=== PATIENT | male | born 1970 | race Caucasian/White ===

== ENCOUNTER 2024-04-30 09:01 | Inpatient (IN) ==
[2024-04-30] MEDS: ALBUT/IPRATROP 3MG/0.5MG NEB 3 ML VIAL NEB ONE (09:48)
--- NOTE | 2024-04-30 09:55 | XRay Report ---
XR chest 1V portable CLINICAL HISTORY: Dyspnea. COMPARISON STUDY: No previous studies for comparison. FINDINGS: Lung volumes are normal. Lungs are clear. There is no pneumothorax or pleural effusion. Top normal cardiac size. Mediastinal contours are normal. There is no evidence for pulmonary edema. IMPRESSION: No acute cardiopulmonary findings. ACT 112: Negative or not required by law. Electronically signed by: Callum Novoa M.D. 04/30/2024 9:54 AM
[2024-04-30 09:58] LABS: Base Excess VBG 5.8 mEq/L; HCO3 VBG 31 mmol/L; Oxygen Saturation VBG < 60.0 %; PCO2 VBG 47 mmHg (38-50); PO2 VBG 32 mmHg; pH VBG 7.43 (7.36-7.41)
[2024-04-30 10:07] LABS: Basophils # (auto) 0.04 K/uL (0.00-0.20); Basophils % (auto) 0.6 %; Hematocrit (blood only) 45.7 % (42.0-52.0); Hemoglobin 15.5 g/dl (14.0-18.0); Immature Granulocytes # (auto) 0.01 K/uL (0.01-0.20); Immature Granulocytes % (auto) 0.1 %; Lymphocytes # (auto) 0.62 K/uL (1.20-3.40); Lymphocytes % (auto) 8.6 %; Mean Corpuscular Hemoglobin 33.1 pg (25.0-34.0); Mean Corpuscular Hgb Conc 33.9 g/dL (32.0-36.0); Mean Corpuscular Volume 97.6 fL (80.0-100.0); Mean Platelet Volume 9.2 fL (9.4-12.4); Monocytes # (auto) 0.92 K/uL (0.11-0.59); Monocytes % (auto) 12.8 %; Neutrophils # (auto) 5.59 K/uL (1.40-6.50); Neutrophils % (auto) 77.9 %; Platelet Count 121 K/uL (130-400); RDW Coefficient of Variation 13.3 % (11.5-14.5); RDW Standard Deviation 48.1 fL (36.4-46.3); Red Blood Count 4.68 M/uL (4.70-6.10); White Blood Count 7.18 K/ul (4.8-10.8)
--- NOTE | 2024-04-30 10:14 | Emergency Department Note ---
Impression & Plan Acute dyspnea, Acute hypoxemic respiratory failure, Hypomagnesemia, New onset a-fib, Elevated brain natriuretic peptide (BNP) level, Transaminitis, Influenza A (H1N1) ED Provider Note HISTORY OF PRESENT ILLNESS: Patient is a 53-year-old male presenting with shortness of breath. Patient reports that acutely at 2 AM this morning he woke up and felt like he could not breathe. He describes a diffuse chest tightness. He states he has had a cough and nasal congestion starting yesterday. Denies any fevers. He does smoke. Denies any recent sick contact exposures. Denies any history of cardiac stents. Denies any DVT or PE history. He is not on any anticoagulation. He states that he went to work and had increasing shortness of breath and chest tightness, prompting him to present to the emergency department. ROS: as above PHYSICAL EXAM: Constitutional: Patient appears in mild distress. HENT: Head: Normocephalic and atraumatic. Eyes: EOMI, PERRL Mouth/Throat: Mucous membranes moist. Neck: Trachea midline. Neck supple. Cardiovascular: Tachycardic with irregularly irregular rhythm. No murmurs, rubs or gallops. Intact distal pulses. Pulmonary/Chest: Conversationally dyspneic. Diffuse expiratory wheezes bilaterally. Abdominal: Abdomen soft, no tenderness, rebound or guarding. Musculoskeletal: No edema, tenderness or deformity noted. Skin: Warm and dry. No rash, erythema, pallor or cyanosis Psychiatric: Appropriate mood and affect for situation. Neurological: Alert and keenly responsive. CN II-XII grossly intact, moving all extremities equally and fully. MDM: - Vitals signs showed hypertension, tachycardia and hypoxia. Patient placed on 3 L nasal cannula. - History obtained via patient. History as above. - Chronic conditions affecting care: None - Differential diagnoses include, but are not limited to: Congestive heart failure; acute coronary syndrome; COPD/asthma exacerbation; pulmonary edema; pulmonary embolism; pneumonia; pneumothorax; viral syndrome - Order placed for continuous cardiac monitoring. At this time, monitor showed rate of 110 bpm with irregular rhythm, per my interpretation. - External medical records reviewed. - EKG interpreted by myself showed atrial fibrillation. Rate tachycardic at 110 bpm. QT 324. No acute ischemic changes. No previous EKG to compare to. Patient does not report any history of A-fib. - Laboratory workup interpreted by myself showed normal WBC; normal PT/INR; hypomagnesemia (Mg 1.5); transaminitis (AST 47; ALT 55); normal troponin; elevated BNP (593) - CXR negative for pneumonia, per my interpretation - VBG grossly unremarkable - UA negative for infection - CT PE negative for pulmonary embolism. Noted to have some small clustered tree-in-bud nodules in the right lower lobe suggestive of an infectious etiology like bronchitis. Also noted to have mildly enlarged mediastinal and bilateral hilar lymph nodes. Noted to have possible pericholecystic stranding, which could be acute cholecystitis in the setting of right upper quadrant pain. - Patient does not have any RUQ abdominal pain on examination - Viral respiratory panel positive for influenza A. - Given an hour long duoneb for wheezing. Given 1g IV magnesium for electrolyte replacement and 1 L normal saline. - Given patient's new oxygen requirement, new A-fib and abnormal laboratory workup, he will be admitted to the hospital service for further evaluation and management. - Discussion was had with rehabilitation caseworker about patient's case and need for admission - Hospitalist consulted for admission - Patient admitted to [facility] service for further evaluation and management. I have personally spent 34 minutes of critical care time in the direct management of this patient. This includes bedside care, interpretation of diagnostic studies, and testing, discussion with consultants, patient, and family members, and other required patient management activities. This 34 minutes is in excess of all separately billable procedures. ASSESSMENT AND PLAN: Diagnosis: acute dyspnea; acute hypoxemic respiratory failure; transaminitis; hypomagnesemia; elevated BNP; new onset Afib; influenza A (H1N1) Plan: admit Past Med/Surg History Problem List (Updated 04/30/24 @ 11:52 by Nikki Michel MD) Influenza A (H1N1) (Acute) Transaminitis (Acute) Elevated brain natriuretic peptide (BNP) level (Acute) New onset a-fib (Acute) Hypomagnesemia (Acute) Acute hypoxemic respiratory failure (Acute) Acute dyspnea (Acute) Finger avulsion (Acute) Social History Smoking Status: Current every day smoker Tobacco Type: Cigarettes Feels Safe at Home: Yes Allergies Allergies Allergy/AdvReac Type Severity Reaction Status Date / Time No Known Drug Allergies Allergy Unknown . Verified 03/12/10 07:34 Home Meds Home Medications Medication Instructions Recorded Confirmed No Known Home Medications 04/30/24 04/30/24 Results & Data (ED) Vital Signs Vital Signs - 24 hr 04/30/24 09:12 04/30/24 09:35 04/30/24 09:50 Temperature 37.1 C Temperature Source Oral Pulse Rate 126 H 108 H Pulse Rate [Right Finger] Pulse Rate from SpO2 Sensor Respiratory Rate 44 H 22 Respiratory Effort / Characteristics Spontaneous Short of Breath Respiratory Depth Respiratory Pattern Blood Pressure 160/86 H Blood Pressure [Right Arm] Blood Pressure Mean 110 Blood Pressure Mean [Right Arm] Pulse Oximetry 88 L 92 Oxygen Delivery Method Room Air Nasal Cannula Oxygen Flow Rate 3 Sepsis Recent Fever Within 48 Hours No Sepsis New/Unexplained Change in Mental Status N/A Sepsis Action Taken by Nursing No Action Required 04/30/24 10:58 04/30/24 11:00 04/30/24 11:24 Temperature Temperature Source Pulse Rate 116 H 135 H Pulse Rate [Right Finger] Pulse Rate from SpO2 Sensor 120 H 138 H Respiratory Rate 29 H 22 Respiratory Effort / Characteristics Respiratory Depth Shallow Respiratory Pattern Blood Pressure 143/99 H Blood Pressure [Right Arm] Blood Pressure Mean 115 Blood Pressure Mean [Right Arm] Pulse Oximetry 100 96 Oxygen Delivery Method Nasal Cannula Oxygen Flow Rate 2 Sepsis Recent Fever Within 48 Hours Sepsis New/Unexplained Change in Mental Status Sepsis Action Taken by Nursing 04/30/24 11:25 04/30/24 11:26 04/30/24 11:27 Temperature Temperature Source Pulse Rate Pulse Rate [Right Finger] 118 H Pulse Rate from SpO2 Sensor Respiratory Rate 20 Respiratory Effort / Characteristics Non-Labored Spontaneous Respiratory Depth Normal Respiratory Pattern Regular Blood Pressure 134/95 Blood Pressure [Right Arm] 134/95 Blood Pressure Mean 105 Blood Pressure Mean [Right Arm] 108 Pulse Oximetry 96 Oxygen Delivery Method Nasal Cannula Nasal Cannula Oxygen Flow Rate 2 2 Sepsis Recent Fever Within 48 Hours Sepsis New/Unexplained Change in Mental Status Sepsis Action Taken by Nursing 04/30/24 11:30 04/30/24 11:45 Temperature Temperature Source Pulse Rate 131 H 111 H Pulse Rate [Right Finger] Pulse Rate from SpO2 Sensor 138 H 112 H Respiratory Rate 22 30 H Respiratory Effort / Characteristics Respiratory Depth Respiratory Pattern Blood Pressure 135/104 H 125/94 Blood Pressure [Right Arm] Blood Pressure Mean 114 104 Blood Pressure Mean [Right Arm] Pulse Oximetry 96 95 Oxygen Delivery Method Nasal Cannula Nasal Cannula Oxygen Flow Rate 2 2 Sepsis Recent Fever Within 48 Hours Sepsis New/Unexplained Change in Mental Status Sepsis Action Taken by Nursing Laboratory Data 04/30/24 09:51 04/30/24 09:51 Lab Results 04/30/24 04/30/24 04/30/24 Range/Units 09:47 09:51 11:00 WBC 7.18 (4.8-10.8) K/ul RBC 4.68 L (4.70-6.10) M/uL Hgb 15.5 (14.0-18.0) g/dl Hct 45.7 (42.0-52.0) % MCV 97.6 (80.0-100.0) fL MCH 33.1 (25.0-34.0) pg MCHC 33.9 (32.0-36.0) g/dL RDW Std Deviation 48.1 H (36.4-46.3) fL RDW Coeff of Cong 13.3 (11.5-14.5) % Plt Count 121 L (130-400) K/uL MPV 9.2 L (9.4-12.4) fL Immature Gran % (Auto) 0.1 % Neut % (Auto) 77.9 % Lymph % (Auto) 8.6 % [place] % (Auto) 12.8 % Eos % (Auto) 0.0 % Baso % (Auto) 0.6 % Neut # (Auto) 5.59 (1.40-6.50) K/uL Lymph # (Auto) 0.62 L (1.20-3.40) K/uL [place] # (Auto) 0.92 H (0.11-0.59) K/uL Eos # (Auto) 0.00 (0.00-0.50) K/uL Baso # (Auto) 0.04 (0.00-0.20) K/uL Immature Gran # (Auto) 0.01 (0.01-0.20) K/uL PT 11.4 (9.0-12.0) Seconds INR 1.1 (0.9-1.1) VBG pH 7.43 H (7.36-7.41) VBG pCO2 47 (38-50) mmHg VBG pO2 32 mmHg VBG HCO3 31 mmol/L VBG O2 Saturation < 60.0 % VBG Base Excess 5.8 mEq/L Sodium 134 L (136-145) mmol/L Potassium 4.5 (3.5-5.1) mmol/L Chloride 97 L (98-107) mmol/L Carbon Dioxide 31 (21-32) mmol/L Anion Gap 6 (3-11) BUN 10 (6-23) mg/dl Creatinine 0.87 (0.6-1.4) mg/dl Est Cr Clr Drug Dosing 123.0 ml/min eGFR 103.82 BUN/Creatinine Ratio 11.5 (10-20) Glucose 136 H (70-99(Fasting)) mg/dl Calcium 9.4 (8.6-10.3) mg/dl Magnesium 1.5 L (1.7-2.4) mg/dl Total Bilirubin 0.9 (0.2-1.0) mg/dl AST 47 H (13-39) U/L ALT 55 H (7-52) U/L Alkaline Phosphatase 64 (34-104) U/L Troponin I High Sens 17.5 (0-20) pg/ml B-Natriuretic Peptide 593 H (0-100) pg/ml Total Protein 7.0 (6.0-8.3) gm/dl Albumin 4.4 (3.4-5.0) gm/dl Globulin 2.6 (2.5-4.0) gm/dl Albumin/Globulin Ratio 1.7 (0.9-2) Urine Color Yellow Urine Appearance Clear (Clear) Urine pH 6.0 (4.5-7.5) Ur Specific [place] 1.013 (1.000-1.030) Urine Protein Trace H (Negative) Urine Glucose (UA) Negative (Negative) Urine Ketones Negative (Negative) Urine Blood Trace H (Negative) Urine Nitrite Negative (Negative) Urine Bilirubin Negative (Negative) Urine Urobilinogen Negative (Negative) Ur Leukocyte Esterase Negative (Negative) Urine WBC (Auto) 0-5 (0-5) /hpf Urine RBC (Auto) 0-2 (0-2) /hpf U Hyaline Cast (Auto) 0-2 (0-2) /lpf U Epithel Cells (Auto) 0-2 (0-2) /hpf Urine Bacteria (Auto) None Seen (None Seen) Nasal Influ A H1 2009 PCR (NotDetected) Adenovirus (PCR) (NotDetected) B. pertussis DNA (PCR) (NotDetected) B.parapertussis DNA PCR (NotDetected) C. pneumoniae DNA (PCR) (NotDetected) Coronavirus OC43 (PCR) (NotDetected) Coronavirus HKU1 (PCR) (NotDetected) Coronavirus 229E (PCR) (NotDetected) SARS-CoV-2 (PCR) (NotDetected) Coronavirus NL63 (PCR) (NotDetected) Human Metapneumovir PCR (NotDetected) Influenza Type B (PCR) (NotDetected) M. pneumoniae (PCR) (NotDetected) Parainfluenza 1 (PCR) (NotDetected) Parainfluenza 2 (PCR) (NotDetected) Parainfluenza 3 (PCR) (NotDetected) Parainfluenza 4 (PCR) (NotDetected) RSV (PCR) (NotDetected) Entero/Rhino (PCR) (NotDetected) 04/30/24 Range/Units Unknown WBC (4.8-10.8) K/ul RBC (4.70-6.10) M/uL Hgb (14.0-18.0) g/dl Hct (42.0-52.0) % MCV (80.0-100.0) fL MCH (25.0-34.0) pg MCHC (32.0-36.0) g/dL RDW Std Deviation (36.4-46.3) fL RDW Coeff of Cong (11.5-14.5) % Plt Count (130-400) K/uL MPV (9.4-12.4) fL Immature Gran % (Auto) % Neut % (Auto) % Lymph % (Auto) % [place] % (Auto) % Eos % (Auto) % Baso % (Auto) % Neut # (Auto) (1.40-6.50) K/uL Lymph # (Auto) (1.20-3.40) K/uL [place] # (Auto) (0.11-0.59) K/uL Eos # (Auto) (0.00-0.50) K/uL Baso # (Auto) (0.00-0.20) K/uL Immature Gran # (Auto) (0.01-0.20) K/uL PT (9.0-12.0) Seconds INR (0.9-1.1) VBG pH (7.36-7.41) VBG pCO2 (38-50) mmHg VBG pO2 mmHg VBG HCO3 mmol/L VBG O2 Saturation % VBG Base Excess mEq/L Sodium (136-145) mmol/L Potassium (3.5-5.1) mmol/L Chloride (98-107) mmol/L Carbon Dioxide (21-32) mmol/L Anion Gap (3-11) BUN (6-23) mg/dl Creatinine (0.6-1.4) mg/dl Est Cr Clr Drug Dosing ml/min eGFR BUN/Creatinine Ratio (10-20) Glucose (70-99(Fasting)) mg/dl Calcium (8.6-10.3) mg/dl Magnesium (1.7-2.4) mg/dl Total Bilirubin (0.2-1.0) mg/dl AST (13-39) U/L ALT (7-52) U/L Alkaline Phosphatase (34-104) U/L Troponin I High Sens (0-20) pg/ml B-Natriuretic Peptide (0-100) pg/ml Total Protein (6.0-8.3) gm/dl Albumin (3.4-5.0) gm/dl Globulin (2.5-4.0) gm/dl Albumin/Globulin Ratio (0.9-2) Urine Color Urine Appearance (Clear) Urine pH (4.5-7.5) Ur Specific [place] (1.000-1.030) Urine Protein (Negative) Urine Glucose (UA) (Negative) Urine Ketones (Negative) Urine Blood (Negative) Urine Nitrite (Negative) Urine Bilirubin (Negative) Urine Urobilinogen (Negative) Ur Leukocyte Esterase (Negative) Urine WBC (Auto) (0-5) /hpf Urine RBC (Auto) (0-2) /hpf U Hyaline Cast (Auto) (0-2) /lpf U Epithel Cells (Auto) (0-2) /hpf Urine Bacteria (Auto) (None Seen) Nasal Influ A H1 2008 PCR DETECTED A (NotDetected) Adenovirus (PCR) Not Detected (NotDetected) B. pertussis DNA (PCR) Not Detected (NotDetected) B.parapertussis DNA PCR Not Detected (NotDetected) C. pneumoniae DNA (PCR) Not Detected (NotDetected) Coronavirus OC43 (PCR) Not Detected (NotDetected) Coronavirus HKU1 (PCR) Not Detected (NotDetected) Coronavirus 229E (PCR) Not Detected (NotDetected) SARS-CoV-2 (PCR) Not Detected (NotDetected) Coronavirus NL63 (PCR) Not Detected (NotDetected) Human Metapneumovir PCR Not Detected (NotDetected) Influenza Type B (PCR) Not Detected (NotDetected) M. pneumoniae (PCR) Not Detected (NotDetected) Parainfluenza 1 (PCR) Not Detected (NotDetected) Parainfluenza 2 (PCR) Not Detected (NotDetected) Parainfluenza 3 (PCR) Not Detected (NotDetected) Parainfluenza 4 (PCR) Not Detected (NotDetected) RSV (PCR) Not Detected (NotDetected) Entero/Rhino (PCR) Not Detected (NotDetected) Administered Medications Magnesium Sulfate/Dextrose (Magnesium Sulfate / D5w) 1 gm in 100 mls @ 100 mls/hr IV NOW STA Stop: 04/30/24 12:38 Last Admin: 04/30/24 12:02 Dose: 100 mls/hr Documented By: Discontinued Medications Albuterol (Albut/Ipratrop 3mg/0.5mg Neb 3 Ml Vial) 12 ml NEB ONE ONE; Protocol Stop: 04/30/24 09:31 Last Admin: 04/30/24 09:48 Dose: 12 ml Documented By: [id number] Ioversol (Optiray 320 125ml) 120 ml IV ONCE ONE Stop: 04/30/24 11:21 Last Admin: 04/30/24 11:20 Dose: 120 ml Documented By: SHARA Imaging Data Radiologist's Impression: Chest X-Ray 04/30/24 09:17 XR chest 1V portable CLINICAL HISTORY: Dyspnea. COMPARISON STUDY: No previous studies for comparison. FINDINGS: Lung volumes are normal. Lungs are clear. There is no pneumothorax or pleural effusion. Top normal cardiac size. Mediastinal contours are normal. There is no evidence for pulmonary edema. IMPRESSION: No acute cardiopulmonary findings. ACT 112: Negative or not required by law. Electronically signed by: Callum Novoa M.D. 04/30/2024 9:54 AM Chest CTA 04/30/24 10:45 CT ANGIOGRAPHY OF THE CHEST, PULMONARY EMBOLUS PROTOCOL CLINICAL HISTORY: Hypoxia. Evaluate for pulmonary embolus. COMPARISON STUDY: Chest radiograph performed earlier today. TECHNIQUE: Following IV administration of 120 mL of Optiray, helical axial images of the chest were obtained utilizing the pulmonary embolus protocol. Maximal intensity projections and sagittal and coronal reformats were viewed on an independent 3D workstation. IV contrast was administered without complication. Automated exposure control was utilized for the study. A dose lowering technique was utilized adhering to the principles of ALARA. CT DOSE: 1033.94 mGy.cm FINDINGS: No pulmonary emboli are identified although segmental and subsegmental pulmonary arteries are suboptimally assessed due to respiratory motion. The heart is mildly enlarged. There is no pericardial effusion. There is no pneumothorax or pleural effusion. A small focus of tree-in-bud nodules within the right lower lobe is present. Lungs are suboptimally assessed due to respiratory motion. There are mildly enlarged mediastinal and hilar lymph nodes. Index right paratracheal lymph node on image 213 of 265 measures 1.6 x 1.2 cm. There is bilateral gynecomastia. Hepatic steatosis is incidentally noted. There is glandular atrophy is visualized portions of the pancreas. There may be subtle pericholecystic stranding. IMPRESSION: 1. No pulmonary emboli identified although segmental and subsegmental pulmonary arteries suboptimally assessed due to respiratory motion. 2. Small cluster of tree-in-bud nodules within the right lower lobe suggestive of an infectious etiology such as bronchiolitis. A chest CT in 3 months to ensure resolution is recommended. 3. Mildly enlarged mediastinal and bilateral hilar lymph nodes. These are probably reactive but should be assessed on follow-up CT to ensure resolution. 4. Possible pericholecystic stranding. This may be artifactual. The findings are not strongly suggestive of acute cholecystitis given lack of gallbladder distention. However, if right upper quadrant pain, ultrasound is recommended. 5. Hepatic steatosis. ACT 112: Negative or not required by law. Electronically signed by: Callum Novoa M.D. 04/30/2024 11:42 AM Discharge Plan Visit Data Chief Complaint: Shortness of Breath/Dyspnea Stated Complaint: TROUBLE BREATHING ED Provider: Nikki Michel Discharge Problem: Acute dyspnea, Acute hypoxemic respiratory failure, Hypomagnesemia, New onset a-fib, Elevated brain natriuretic peptide (BNP) level, Transaminitis, Influenza A (H1N1) Forms Stand Alone Forms: My [facility] Prescriptions Prescriptions: No Action No Known Home Medications Referrals Referrals: PCP,NO [Primary Care Provider] -
[2024-04-30 10:24] LABS: Albumin Globulin Ratio 1.7 (0.9-2); Albumin Level 4.4 gm/dl (3.4-5.0); BUN Creatinine Ratio 11.5 (10-20); Bilirubin,Total 0.9 mg/dl (0.2-1.0); Calcium 9.4 mg/dl (8.6-10.3); Globulin 2.6 gm/dl (2.5-4.0); Magnesium 1.5 mg/dl (1.7-2.4); Potassium 4.5 mmol/L (3.5-5.1)
[2024-04-30 10:28] LABS: INR 1.1 (0.9-1.1); Prothrombin Time 11.4 Seconds (9.0-12.0); Troponin I High Sensitivity 17.5 pg/ml (0-20)
[2024-04-30] MEDS: OPTIRAY 320 125ml IV ONE (11:20)
[2024-04-30 11:25] LABS: Appearance Urine Clear (Clear); Bacteria Urine Automated None Seen (None Seen); Bilirubin Urine Negative (Negative); Blood Urine Trace (Negative); Cast Urine Automated 0-2 /lpf (0-2); Color Urine Yellow; Epithelial Cell Urine Auto 0-2 /hpf (0-2); Glucose Urine UA Negative (Negative); Ketones Urine Negative (Negative); Leukocyte Esterase Urine Negative (Negative); Nitrite Urine Negative (Negative); Protein Urine Trace (Negative); RBC Urine Automated 0-2 /hpf (0-2); Specific Gravity Urine 1.013 (1.000-1.030); Urobilinogen Urine Negative (Negative); WBC Urine Automated 0-5 /hpf (0-5)
[2024-04-30 11:41] LABS: Adenovirus PCR Not Detected (NotDetected); Bordetella parapertussis PCR Not Detected (NotDetected); Bordetella pertussis PCR Not Detected (NotDetected); Chlamydia pneumoniae PCR Not Detected (NotDetected); Coronavirus 229E PCR Not Detected (NotDetected); Coronavirus CoV-2 (COVID19)PCR Not Detected (NotDetected); Coronavirus HKU1 PCR Not Detected (NotDetected); Coronavirus NL63 PCR Not Detected (NotDetected); Coronavirus OC43PCR Not Detected (NotDetected); Human Metapneumovirus PCR Not Detected (NotDetected); Influenza A (H1 2009) PCR DETECTED (NotDetected); Influenza B PCR Not Detected (NotDetected); Mycoplasma pneumoniae PCR Not Detected (NotDetected); Parainfluenza Virus 1 PCR Not Detected (NotDetected); Parainfluenza Virus 2 PCR Not Detected (NotDetected); Parainfluenza Virus 3 PCR Not Detected (NotDetected); Parainfluenza Virus 4 PCR Not Detected (NotDetected); Respiratory Syncytial VirusPCR Not Detected (NotDetected); Rhinovirus/Enterovirus PCR Not Detected (NotDetected)
--- NOTE | 2024-04-30 11:45 | CT Scan Report ---
CT ANGIOGRAPHY OF THE CHEST, PULMONARY EMBOLUS PROTOCOL CLINICAL HISTORY: Hypoxia. Evaluate for pulmonary embolus. COMPARISON STUDY: Chest radiograph performed earlier today. TECHNIQUE: Following IV administration of 120 mL of Optiray, helical axial images of the chest were o btained utilizing the pulmonary embolus protocol. Maximal intensity projections and sagittal and cor onal reformats were viewed on an independent 3D workstation. IV contrast was administered without co mplication. Automated exposure control was utilized for the study. A dose lowering technique was ut ilized adhering to the principles of ALARA. CT DOSE: 1033.94 mGy.cm FINDINGS: No pulmonary emboli are identified although segmental and subsegmental pulmonary arteries are suboptimally assessed due to respiratory motion. The heart is mildly enlarged. There is no perica rdial effusion. There is no pneumothorax or pleural effusion. A small focus of tree-in-bud nodules wi thin the right lower lobe is present. Lungs are suboptimally assessed due to respiratory motion. Ther e are mildly enlarged mediastinal and hilar lymph nodes. Index right paratracheal lymph node on image 213 of 265 measures 1.6 x 1.2 cm. There is bilateral gynecomastia. Hepatic steatosis is incidentally noted. There is glandular atrophy is visualized portions of the pancreas. There may be subtle perich olecystic stranding. IMPRESSION: 1. No pulmonary emboli identified although segmental and subsegmental pulmonary arteries suboptimally assessed due to respiratory motion. 2. Small cluster of tree-in-bud nodules within the right lower lobe suggestive of an infectious etiol ogy such as bronchiolitis. A chest CT in 3 months to ensure resolution is recommended. 3. Mildly enlarged mediastinal and bilateral hilar lymph nodes. These are probably reactive but shoul d be assessed on follow-up CT to ensure resolution. 4. Possible pericholecystic stranding. This may be artifactual. The findings are not strongly suggest juan of acute cholecystitis given lack of gallbladder distention. However, if right upper quadrant jean n, ultrasound is recommended. 5. Hepatic steatosis. ACT 112: Negative or not required by law. Electronically signed by: Callum Novoa M.D. 04/30/2024 11:42 AM
[2024-04-30] MEDS: MAGNESIUM SULFATE / D5W 1 GM/100 ML BAG IV STA ×2 (12:02→16:02)
[2024-04-30] MEDS ORDERED: dilTIAZem HCl 5 MG/ML 5 ML VIAL IV STA (12:11)
--- NOTE | 2024-04-30 12:26 | History & Physical Report ---
Date of Service April 30, 2024 Assessment & Plan (1) Acute hypoxemic respiratory failure: (2) Influenza A (H1N1): Plan: Patient is a 53-year-old male with PMH ETOH abuse, tobacco use, chronic back pain presented to ER with c/o SOB, cough, myalgias x 1 day. In ER afebrile, P: 126, R: 44, BP 160/86, 88% on room air up to 95% on 2 L O2 via nasal cannula +Influenza A on biofire respiratory panel. No leukocytosis. Procalcitonin: 0.07 In ER given 1L NSS, magnesium sulfate 1 g IV, hour-long albuterol neb Isolation precautions Start Tamiflu Xopenex, Atrovent nebs Incentive spirometry, Mucinex Possibly has underlying undiagnosed COPD with tobacco use history Solumedrol 40mg IV Q8H Supplemental oxygen as needed, wean as able CBC in am (3) Atrial fibrillation with RVR: Plan: New onset afib RVR. Likely from underlying illness with influenza In ER given Diltiazem 10 mg IV bolus EKG: afib RVR, Q waves noted in septal and anterior leads. Initial troponin: 17.5. Magnesium: 1.5. BNP: 593 CXR: no acute infiltrate CTA Chest: no PE noted In ER patient reports feeling less SOB and chest tightness is much decreased Heart rates continue in 120s to 150s. Start Cardizem drip Start metoprolol tartrate p.o. Echo Trend troponin TSH pending Start IV heparin Cardiology consult CBC, CMP, magnesium labs in am (4) Hypomagnesemia: Plan: Magnesium: 1.5 In ER given magnesium sulfate 1GM IV Replace and monitor. Goal magnesium level 2.0 or greater (5) Elevated LFTs: Plan: T. bili: 0.9, AST: 47, ALT: 55, alk phos: 64. CTA chest had noted hepatic steatosis, Possible pericholecystic stranding. This may be artifactual. The findings are not strongly suggestive of acute cholecystitis given lack of gallbladder distention. +ETOH use Patient denies RUQ abdominal pain Non-tender abdomen on exam If develops abdominal pain consider further abdominal imaging. Repeat LFTs in AM (6) Abnormal CT of the chest: Plan: CTA Chest: 1. No pulmonary emboli identified although segmental and subsegmental pulmonary arteries suboptimally assessed due to respiratory motion. 2. Small cluster of tree-in-bud nodules within the right lower lobe suggestive of an infectious etiology such as bronchiolitis. A chest CT in 3 months to ensure resolution is recommended. 3. Mildly enlarged mediastinal and bilateral hilar lymph nodes. These are probably reactive but should be assessed on follow-up CT to ensure resolution. 4. Possible pericholecystic stranding. This may be artifactual. The findings are not strongly suggestive of acute cholecystitis given lack of gallbladder distention. However, if right upper quadrant pain, ultrasound is recommended. 5. Hepatic steatosis. Will need follow up chest imaging to reassess (7) H/O ETOH abuse: Plan: Drinks 8 beers daily. Last ETOH drink last night ETOH withdrawal protocol with gabapentin ETOH cessation recommended Start thiamine, folic acid, multivitamin daily Magnesium and phosphorus labs in am (8) Tobacco use: Plan: Smokes 1ppd Nicotine patch Smoking cessation encouraged DVT Prophylaxis On IV heparin Admit PCU Full Code as per discussion with pt, however reports would not want prolonged intubation/mechanical ventilation Does not follows with PCP for routine care Pt was seen and care coordinated with Dr Alonzo. See addendum I spent a total of 80 minutes reviewing notes, outpatient records, labs, medication, coordinating, documenting and providing care for this patient excluding time spent in the performance of separately billed services. History of Present Illness Chief Complaint: SOB Primary Care Provider: NO PCP Patient is a 53-year-old male with PMH ETOH abuse, tobacco use, chronic back pain presented to ER with c/o SOB x 1 day. Patient reports does not go to PCP and denies any known afib, TIA/CVA, CKD, CHF history, HTN, or COPD. Patient states yesterday started with diffuse myalgias, productive cough (unsure of coloration), congestion, and SOB. Unaware if any fever. [place] chilled. States today coughing a lot but attempted going to work today and at work had severe SOB, coughing episode with post tussive emesis and chest tightness and dizziness and felt like he was going to pass out. Denies syncope. Denies NAGY. Denies other vomiting or diarrhea. Denies noted palpitations. States diffuse body aches and diffuse abdominal aching with coughing but denies other abdominal pain. Reports some BLE edema after standing all day at work. Drinks 8 beers a day. Last ETOH last night. reports gets tremulous when doesn't drink. Denies history seizure, DT's. Drinks up to 24 ounces Mountain Dew on work days. Smokes 1ppd. Did not have influenza vaccine this season. Denies any known ill contacts. Denies melena, hematochezia, diarrhea, constipation, vision changes, hemoptysis, paresthesias, extremity weakness, rashes, urinary symptoms. Allergies Allergy/AdvReac Type Severity Reaction Status Date / Time No Known Drug Allergies Allergy Unknown . Verified 03/12/10 07:34 Home Medications Medication Instructions Recorded Confirmed Type No Known Home Medications 04/30/24 04/30/24 History Past Med/Surg History Problem List (Updated 04/30/24 @ 13:17 by Petrona Gandhi PA-C) Abnormal CT of the chest Elevated LFTs Atrial fibrillation with RVR Influenza A (H1N1) (Acute) Transaminitis (Acute) Elevated brain natriuretic peptide (BNP) level (Acute) New onset a-fib (Acute) Hypomagnesemia (Acute) Acute hypoxemic respiratory failure (Acute) Acute dyspnea (Acute) Finger avulsion (Acute) Medical History (Updated 04/30/24 @ 13:17 by Petrona Gandhi PA-C) Tobacco use H/O ETOH abuse Surgical History (Updated 04/30/24 @ 13:42 by Petrona Gandhi PA-C) History of appendectomy Family History (Updated 04/30/24 @ 13:42 by Petrona Gandhi PA-C) Other Prostate cancer Social History (Updated 04/30/24 @ 13:43 by Petrona Gandhi PA-C) Smoking Status: Current every day smoker Tobacco Type: Cigarettes Age Started Using Tobacco: 26; Cigarettes Per Day: 1ppd; Hx Alcohol Use: Yes (8 beers daily) Hx Substance Use: Yes Non-Prescribed Medications Comment: hydrocodone Last Used Substance: Days (ago) Feels Safe at Home: Yes Review of Systems Review of Systems: All systems reviewed & are unremarkable except as noted in HPI & below Physical Exam Physical Exam: General: +ill appearing, no acute respiratory distress at rest on 3L via NC, obese Head: normocephalic, atraumatic Eyes: conjunctiva non-injected, anicteric ENT: normal inspection external ears, nose, mucous membranes moist Neck: supple, trachea midline Lungs: no respiratory distress on 3L O2 via NC with sat 96%, +diminished breath sounds and wheezing throughout CV: irregularly irregular, rate 140, 1+ pretibial edema Abd: protuberant, normal BS, soft, non-tender to palpation Ext: no cyanosis, no calf tenderness Neuro: A&O x 3, no focal deficits noted, normal affect Skin: warm, dry Results & Data Results & Data Vital Signs (Past 12 Hours) Vital Signs Temp Pulse Pulse Resp BP BP Pulse Ox 04/30/24 11:45 111 H 30 H 125/94 95 04/30/24 11:30 131 H 22 135/104 H 96 04/30/24 11:27 04/30/24 11:26 118 H 20 134/95 96 04/30/24 11:25 134/95 04/30/24 11:24 135 H 22 96 04/30/24 11:00 116 H 29 H 143/99 H 100 04/30/24 09:50 22 92 04/30/24 09:35 108 H 04/30/24 09:12 37.1 C 126 H 44 H 160/86 H 88 L O2 Del Method O2 Flow Rate 04/30/24 11:45 Nasal Cannula 2 04/30/24 11:30 Nasal Cannula 2 04/30/24 11:27 Nasal Cannula 2 04/30/24 11:26 Nasal Cannula 2 04/30/24 11:25 04/30/24 11:24 04/30/24 11:00 Nasal Cannula 2 04/30/24 09:50 Nasal Cannula 3 04/30/24 09:35 04/30/24 09:12 Room Air Laboratory Results Short CBC 04/30/24 Range/Units 09:51 WBC 7.18 (4.8-10.8) K/ul Hgb 15.5 (14.0-18.0) g/dl Hct 45.7 (42.0-52.0) % Plt Count 121 L (130-400) K/uL BMP 04/30/24 09:51 Sodium 134 L Potassium 4.5 Chloride 97 L Carbon Dioxide 31 BUN 10 Creatinine 0.87 Glucose 136 H Calcium 9.4 Liver Function 04/30/24 Range/Units 09:51 Total Bilirubin 0.9 (0.2-1.0) mg/dl AST 47 H (13-39) U/L ALT 55 H (7-52) U/L Alkaline Phosphatase 64 (34-104) U/L Albumin 4.4 (3.4-5.0) gm/dl Urine 04/30/24 Range/Units 11:00 Urine Color Yellow Urine Appearance Clear (Clear) Urine pH 6.0 (4.5-7.5) Ur Specific [place] 1.013 (1.000-1.030) Urine Protein Trace H (Negative) Urine Glucose (UA) Negative (Negative) Diagnostic Findings Chest X-Ray 04/30/24 09:17 XR chest 1V portable CLINICAL HISTORY: Dyspnea. COMPARISON STUDY: No previous studies for comparison. FINDINGS: Lung volumes are normal. Lungs are clear. There is no pneumothorax or pleural effusion. Top normal cardiac size. Mediastinal contours are normal. There is no evidence for pulmonary edema. IMPRESSION: No acute cardiopulmonary findings. ACT 112: Negative or not required by law. Electronically signed by: Callum Novoa M.D. 04/30/2024 9:54 AM Chest CTA 04/30/24 10:45 CT ANGIOGRAPHY OF THE CHEST, PULMONARY EMBOLUS PROTOCOL CLINICAL HISTORY: Hypoxia. Evaluate for pulmonary embolus. COMPARISON STUDY: Chest radiograph performed earlier today. TECHNIQUE: Following IV administration of 120 mL of Optiray, helical axial images of the chest were obtained utilizing the pulmonary embolus protocol. Maximal intensity projections and sagittal and coronal reformats were viewed on an independent 3D workstation. IV contrast was administered without complication. Automated exposure control was utilized for the study. A dose lowering technique was utilized adhering to the principles of ALARA. CT DOSE: 1033.94 mGy.cm FINDINGS: No pulmonary emboli are identified although segmental and subsegmental pulmonary arteries are suboptimally assessed due to respiratory motion. The heart is mildly enlarged. There is no pericardial effusion. There is no pneumothorax or pleural effusion. A small focus of tree-in-bud nodules within the right lower lobe is present. Lungs are suboptimally assessed due to respiratory motion. There are mildly enlarged mediastinal and hilar lymph nodes. Index right paratracheal lymph node on image 213 of 265 measures 1.6 x 1.2 cm. There is bilateral gynecomastia. Hepatic steatosis is incidentally noted. There is glandular atrophy is visualized portions of the pancreas. There may be subtle pericholecystic stranding. IMPRESSION: 1. No pulmonary emboli identified although segmental and subsegmental pulmonary arteries suboptimally assessed due to respiratory motion. 2. Small cluster of tree-in-bud nodules within the right lower lobe suggestive of an infectious etiology such as bronchiolitis. A chest CT in 3 months to ensure resolution is recommended. 3. Mildly enlarged mediastinal and bilateral hilar lymph nodes. These are probably reactive but should be assessed on follow-up CT to ensure resolution. 4. Possible pericholecystic stranding. This may be artifactual. The findings are not strongly suggestive of acute cholecystitis given lack of gallbladder distention. However, if right upper quadrant pain, ultrasound is recommended. 5. Hepatic steatosis. ACT 112: Negative or not required by law. Electronically signed by: Callum Novoa M.D. 04/30/2024 11:42 AM ECG Additional Comments: Atrial fibrillation, RVR, rate 110, Q waves septal and anterior leads per my interpretation. no prior EKG available for comparison Supervising Physician Co-Signing Physician Notes Pt seen and examined by me, care coordinated w/ JEse Gandhi PA-C, pls refer to her note above for further detail. 53 yo M w/ hx of ETOH abuse, tobacco use, chronic back pain who presents with shortness of breath, and founds to be positive for Influenza A, hypoxic, and in Afib w/ RVR. Pt is currently laying in bed, in NAD, on suppl. O2, about to have echo done, pt's is present at the bedside. Patient reports diffuse myalgias, productive cough, congestion, and shortness of breath, +chest tightness and dizziness. In ED received, mag, diltiazem. C ontinues to be tachycardic. He is awake, alert, oriented, answers appropriately. + tachycardic,+ diffuse exp. wheezes. abdomen soft, nontender. Moves extremities. Started dilt, will cont. start iv heparin, obtain echo, cardiology consult. For influenza A, start tamiflu, solumedrol, nebs. replete and monitor electrolytes, K, Mg. MD [place]
[2024-04-30] MEDS ORDERED: STAT IV Infusion **Titration per Protocol STA (12:39)
[2024-04-30] MEDS: dilTIAZem HCL 125 MG in DEXTROSE 5% 100 ML IV SCH (13:11)
[2024-04-30] MEDS ORDERED: Heparin IV Adult Wt-Based Low-Dose *NO* INITIAL Bolus Protocol IV STA (13:27)
[2024-04-30] MEDS: LORazepam 0.5 MG TAB PO STA (13:55)
[2024-04-30] MEDS: OSELTAMIVIR PHOSPHATE 75 MG CAP PO STA (13:55)
[2024-04-30] MEDS: guaiFENesin 600 MG TABCR PO ONE (13:55)
[2024-04-30] MEDS: SODIUM CHLORIDE 0.9% 1,000 ML IV ONE (13:56)
[2024-04-30] MEDS: NICOTINE 21 MG/24 HR TDSY TD STA (14:04)
[2024-04-30] MEDS: METOPROLOL TARTRATE 25 MG TAB PO STA (14:04)
[2024-04-30 14:08] LABS: Amphetamines+Metham, Urine Neg (Neg); Barbiturates, Urine Neg (Neg); Benzodiazepine, Urine Neg (Neg); Cocaine, Urine Neg (Neg); Fentanyl, Urine Neg (Neg); MDMA (Ecstacy), Urine Neg (Neg); Marijuana, Urine Neg (Neg); Methadone, Urine Neg (Neg); Opiate, Urine Pos (Neg); Phencyclidine, Urine Neg (Neg)
[2024-04-30] MEDS: HEPARIN 25000 UNIT/500 ML 25,000 UNITS/500 ML BAG IV SCH (14:17)
--- NOTE | 2024-04-30 14:27 | Cardiology Consultation ---
Date of Consultation April 30, 2024 Assessment & Plan (1) Atrial fibrillation with RVR: (2) Influenza A (H1N1): (3) Elevated LFTs: (4) Acute hypoxemic respiratory failure: Plan 53-year-old male presenting with worsening dyspnea and hypoxic respiratory failure. Found to be in atrial fibrillation with rapid ventricular response, test positive for influenza A. Symptoms preceded by several days increasing cough myalgias malaise. Last evening marked dyspnea with cough. Currently improved with oxygen supplementation. Cardiac issues are as follows 1. Atrial fibrillation with rapid ventricular response: Uncertain duration as patient is unaware of tachypalpitations despite elevated heart rate in ER. Anticoagulation with IV heparin ordered. Patient begun on IV diltiazem however preliminary review echo reflects mildly depressed LV systolic function. Will discontinue IV diltiazem continue oral metoprolol tartrate. Formal echo review pending Will ultimately require sleep apnea evaluation 2. Influenza A, likely precipitant of cardiac arrhythmias though patient hypertensive on presentation. Underlying history of significant alcohol use. Treatment per primary service as well as nicotine and alcohol withdrawal management History of Present Illness Reason for Consultation: Atrial fibrillation with rapid ventricular response, shortness of breath Requesting Physician[facility] History of Present Illness Patient is a 53-year-old male without prior cardiac disease, no recent medical interventions presents noting cough malaise and myalgias times several days worsening cough day prior to admission waking patient from sleep earlier this morning. With marked dyspnea. Patient sought ER evaluation where is found to be in atrial fibrillation with rapid ventricular response. Patient unaware of any sense of tachypalpitations. No chest discomfort with cough worsening shortness of breath. No recent fevers but does feel chilled. No history of TIA or stroke, diabetes mellitus, hypertension, renal or hepatic disease. No bleeding issues. Smokes 1 pack of cigarettes per day, Drinks 8 beers per day Moderately active, On feet at work Generally sleeps well but notable loud snorer with restless respiratory status Weight elevated with gradual increase over the past 5 years but no acute change ,no worsening edema or increasing abdominal girth Allergies Allergy/AdvReac Type Severity Reaction Status Date / Time No Known Drug Allergies Allergy Unknown . Verified 03/12/10 07:34 Home Medications Medication Instructions Recorded Confirmed Type No Known Home Medications 04/30/24 04/30/24 History Patient History Medical History Tobacco use H/O ETOH abuse Surgical History History of appendectomy Family History Other Prostate cancer Social History Smoking Status: Current every day smoker Tobacco Type: Cigarettes Age Started Using Tobacco: 26; Cigarettes Per Day: 1ppd; Hx Alcohol Use: Yes (8 beers daily) Hx Substance Use: Yes Non-Prescribed Medications Comment: hydrocodone Last Used Substance: Days (ago) Feels Safe at Home: Yes Review of Systems Review of Systems: All systems reviewed & are unremarkable except as noted in HPI & below Physical Exam Constitutional: + ill appearing and + obese Eyes: PERRL, conjunctivae normal, anicteric sclerae ENMT: external ear and nose normal, oropharynx normal Neck: trachea midline, no thyromegaly + thick neck Respiratory: Auscultation: + bronchovesicular breath sounds Cardiovascular: Rate/Rhythm: + tachycardic and + irregularly irregular Heart Sounds: normal S1 and normal S2; no murmur Gastrointestinal (Abdomen): normal bowel sounds, soft, nontender, no hepatosplenomegaly Skin: no rashes, warm and dry Neurologic: PERRL, EOMI, accommodation nl, no face palsy, no dysarthria Results & Data Vital Signs (Past 12 Hours) Vital Signs Temp Pulse Pulse Resp BP BP Pulse Ox 04/30/24 12:45 144 H 21 169/113 H 96 04/30/24 12:33 120 H 28 H 172/104 H 96 04/30/24 12:15 105 H 24 153/85 H 95 04/30/24 12:00 121 H 30 H 157/91 H 95 04/30/24 11:45 111 H 30 H 125/94 95 04/30/24 11:30 131 H 22 135/104 H 96 04/30/24 11:27 04/30/24 11:26 118 H 20 134/95 96 04/30/24 11:25 134/95 04/30/24 11:24 135 H 22 96 04/30/24 11:00 116 H 29 H 143/99 H 100 04/30/24 09:50 22 92 04/30/24 09:35 108 H 04/30/24 09:12 37.1 C 126 H 44 H 160/86 H 88 L O2 Del Method O2 Flow Rate 04/30/24 12:45 Nasal Cannula 4 04/30/24 12:33 Nasal Cannula 4 04/30/24 12:15 Nasal Cannula 4 04/30/24 12:00 04/30/24 11:45 Nasal Cannula 2 04/30/24 11:30 Nasal Cannula 2 04/30/24 11:27 Nasal Cannula 2 04/30/24 11:26 Nasal Cannula 2 04/30/24 11:25 04/30/24 11:24 04/30/24 11:00 Nasal Cannula 2 04/30/24 09:50 Nasal Cannula 3 04/30/24 09:35 04/30/24 09:12 Room Air Laboratory Results Laboratory Results - last 24 hr 04/30/24 04/30/24 04/30/24 09:47 09:51 09:52 WBC 7.18 RBC 4.68 L Hgb 15.5 Hct 45.7 MCV 97.6 MCH 33.1 MCHC 33.9 RDW Std Deviation 48.1 H RDW Coeff of Cong 13.3 Plt Count 121 L MPV 9.2 L Immature Gran % (Auto) 0.1 Neut % (Auto) 77.9 Lymph % (Auto) 8.6 [place] % (Auto) 12.8 Eos % (Auto) 0.0 Baso % (Auto) 0.6 Neut # (Auto) 5.59 Lymph # (Auto) 0.62 L [place] # (Auto) 0.92 H Eos # (Auto) 0.00 Baso # (Auto) 0.04 Immature Gran # (Auto) 0.01 PT 11.4 INR 1.1 VBG pH 7.43 H VBG pCO2 47 VBG pO2 32 VBG HCO3 31 VBG O2 Saturation < 60.0 VBG Base Excess 5.8 Sodium 134 L Potassium 4.5 Chloride 97 L Carbon Dioxide 31 Anion Gap 6 BUN 10 Creatinine 0.87 Est Cr Clr Drug Dosing 123.0 eGFR 103.82 BUN/Creatinine Ratio 11.5 Glucose 136 H Calcium 9.4 Magnesium 1.5 L Total Bilirubin 0.9 AST 47 H ALT 55 H Alkaline Phosphatase 64 Troponin I High Sens 17.5 B-Natriuretic Peptide 593 H Total Protein 7.0 Albumin 4.4 Globulin 2.6 Albumin/Globulin Ratio 1.7 Procalcitonin 0.07 Urine Color Urine Appearance Urine pH Ur Specific [place] Urine Protein Urine Glucose (UA) Urine Ketones Urine Blood Urine Nitrite Urine Bilirubin Urine Urobilinogen Ur Leukocyte Esterase Urine WBC (Auto) Urine RBC (Auto) U Hyaline Cast (Auto) U Epithel Cells (Auto) Urine Bacteria (Auto) Nasal Influ A H1 2008 PCR Urine Opiates Screen U Codeine Confrm GC/MS Ur Morphine (GC/MS) Ur Hydrocodone (GC/MS) Ur Norhydrocodone Ur Noroxycodone Urine Oxycodone (GC/MS) U Oxymorphone GC/MS Ur Methadone, Qual Ur Hydromorphone (GC/MS) Urine Fentanyl Screen Urine Barbiturates Ur Phencyclidine (PCP) U Amphetamin/Meth Scrn MDMA (Ecstasy) Screen U Benzodiazepines Scrn Ur Cocaine Metabolite U Marijuana (THC) Screen Drug Screen Comment Adenovirus (PCR) B. pertussis DNA (PCR) B.parapertussis DNA PCR C. pneumoniae DNA (PCR) Coronavirus OC43 (PCR) Coronavirus HKU1 (PCR) Coronavirus 229E (PCR) SARS-CoV-2 (PCR) Coronavirus NL63 (PCR) Human Metapneumovir PCR Influenza Type B (PCR) M. pneumoniae (PCR) Parainfluenza 1 (PCR) Parainfluenza 2 (PCR) Parainfluenza 3 (PCR) Parainfluenza 4 (PCR) RSV (PCR) Entero/Rhino (PCR) 04/30/24 04/30/24 11:00 Unknown WBC RBC Hgb Hct MCV MCH MCHC RDW Std Deviation RDW Coeff of Cong Plt Count MPV Immature Gran % (Auto) Neut % (Auto) Lymph % (Auto) [place] % (Auto) Eos % (Auto) Baso % (Auto) Neut # (Auto) Lymph # (Auto) [place] # (Auto) Eos # (Auto) Baso # (Auto) Immature Gran # (Auto) PT INR VBG pH VBG pCO2 VBG pO2 VBG HCO3 VBG O2 Saturation VBG Base Excess Sodium Potassium Chloride Carbon Dioxide Anion Gap BUN Creatinine Est Cr Clr Drug Dosing eGFR BUN/Creatinine Ratio Glucose Calcium Magnesium Total Bilirubin AST ALT Alkaline Phosphatase Troponin I High Sens B-Natriuretic Peptide Total Protein Albumin Globulin Albumin/Globulin Ratio Procalcitonin Urine Color Yellow Urine Appearance Clear Urine pH 6.0 Ur Specific [place] 1.013 Urine Protein Trace H Urine Glucose (UA) Negative Urine Ketones Negative Urine Blood Trace H Urine Nitrite Negative Urine Bilirubin Negative Urine Urobilinogen Negative Ur Leukocyte Esterase Negative Urine WBC (Auto) 0-5 Urine RBC (Auto) 0-2 U Hyaline Cast (Auto) 0-2 U Epithel Cells (Auto) 0-2 Urine Bacteria (Auto) None Seen Nasal Influ A H1 2008 PCR DETECTED A Urine Opiates Screen Pos H U Codeine Confrm GC/MS Pending Ur Morphine (GC/MS) Pending Ur Hydrocodone (GC/MS) Pending Ur Norhydrocodone Pending Ur Noroxycodone Pending Urine Oxycodone (GC/MS) Pending U Oxymorphone GC/MS Pending Ur Methadone, Qual Neg Ur Hydromorphone (GC/MS) Pending Urine Fentanyl Screen Neg Urine Barbiturates Neg Ur Phencyclidine (PCP) Neg U Amphetamin/Meth Scrn Neg MDMA (Ecstasy) Screen Neg U Benzodiazepines Scrn Neg Ur Cocaine Metabolite Neg U Marijuana (THC) Screen Neg Drug Screen Comment Pending Adenovirus (PCR) Not Detected B. pertussis DNA (PCR) Not Detected B.parapertussis DNA PCR Not Detected C. pneumoniae DNA (PCR) Not Detected Coronavirus OC43 (PCR) Not Detected Coronavirus HKU1 (PCR) Not Detected Coronavirus 229E (PCR) Not Detected SARS-CoV-2 (PCR) Not Detected Coronavirus NL63 (PCR) Not Detected Human Metapneumovir PCR Not Detected Influenza Type B (PCR) Not Detected M. pneumoniae (PCR) Not Detected Parainfluenza 1 (PCR) Not Detected Parainfluenza 2 (PCR) Not Detected Parainfluenza 3 (PCR) Not Detected Parainfluenza 4 (PCR) Not Detected RSV (PCR) Not Detected Entero/Rhino (PCR) Not Detected ECG Additional Comments: EKG 04/30/2024 Atrial fibrillation at 110 bpm Poor R progression V1 V2, relatively low voltages
[2024-04-30] MEDS ORDERED: LORazepam 1 MG TAB PO PRN (15:02)
[2024-04-30] MEDS ORDERED: GABAPENTIN 1200MG ALCOHOL WITHDRAWAL LOAD PO STA (15:02)
[2024-04-30] MEDS ORDERED: POLYETHYLENE (MIRALAX) 17 GM PACK PO PRN (15:02)
--- NOTE | 2024-04-30 15:02 | Electrocardiogram Report ---
Test Reason : Blood Pressure : */* mmHG Vent. Rate : 110 BPM Atrial Rate : * BPM P-R Int : * ms QRS Dur : 88 ms QT Int : 324 ms P-R-T Axes : * 70 61 degrees QTcB Int : 438 ms Atrial fibrillation with rapid ventricular response Cannot rule out Anterior infarct , age undetermined Abnormal ECG No previous ECGs available Confirmed by Miguel Edmonds [id number] on 04/30/2024 3:02:12 PM Referred By: REFERRED SELF Confirmed By: Miguel Edmonds
[2024-04-30] MEDS: LEVALBUTEROL 1.25 MG/3 ML NEB NEB SCH (15:15)
[2024-04-30] MEDS: IPRATROPIUM BROMIDE NEB SOLN 0.02% 0.5MG/2.5ML VIAL NEB SCH (15:15)
[2024-04-30] MEDS: methylPREDNISolone 125 MG/2 ML VIAL IV STA (16:02)
[2024-04-30] MEDS: THIAMINE HCL 100 MG in SYRINGE 9 ML IV STA (16:02)
[2024-04-30] MEDS: GABAPENTIN 600 MG TAB PO ONE (16:06)
[2024-04-30] MEDS: METOPROLOL TARTRATE 25 MG TAB PO SCH (16:07)
[2024-04-30 16:12] LABS: Phosphorus 2.6 mg/dl (2.5-4.9)
[2024-04-30 16:19] LABS: Troponin I High Sensitivity 24.3 pg/ml (0-20)
[2024-04-30 16:29] LABS: Thyroid Stimulating Hormone 0.265 uIu/ml (0.300-4.500)
[2024-04-30 17:03] LABS: T4 Free Thyroxine 0.82 ng/dl (0.61-1.60)
[2024-04-30] MEDS: ACETAMINOPHEN 325 MG TAB PO PRN (20:01)
[2024-04-30] MEDS: GABAPENTIN 600 MG TAB PO SCH (20:03)
[2024-04-30] MEDS: methylPREDNISolone 40 MG in SYRINGE 0 ML IV SCH (20:04)
[2024-04-30] MEDS: guaiFENesin 600 MG TABCR PO SCH (20:04)
[2024-04-30] MEDS: OSELTAMIVIR PHOSPHATE 75 MG CAP PO SCH (20:05)
[2024-04-30 20:51] LABS: ANTI-Xa, UFH(UnfractionatedHep 0.28 IU/ml (0.3-0.7)
[2024-04-30] MEDS ORDERED: methylPREDNISolone 125 MG/2 ML VIAL IV SCH (21:00)
[2024-04-30] MEDS ORDERED: METOPROLOL TARTRATE 25 MG TAB PO SCH (21:00)
[2024-04-30] MEDS ORDERED: Ativan IV Alcohol Withdrawal--Active Protocol IV PRN (23:55)
[2024-04-30] MEDS ORDERED: LORazepam 2 MG/1 ML VIAL IV PRN (23:55)
[2024-05-01] MEDS: LORazepam 2 MG/1 ML VIAL IV PRN ×2 (00:40→08:17)
[2024-05-01 04:04] LABS: Hematocrit (blood only) 44.2 % (42.0-52.0); Hemoglobin 15.2 g/dl (14.0-18.0); Mean Corpuscular Hgb Conc 34.4 g/dL (32.0-36.0); Mean Corpuscular Volume 96.1 fL (80.0-100.0); Mean Platelet Volume 9.7 fL (9.4-12.4); Platelet Count 108 K/uL (130-400); RDW Coefficient of Variation 13.3 % (11.5-14.5); RDW Standard Deviation 47.7 fL (36.4-46.3); White Blood Count 9.38 K/ul (4.8-10.8)
[2024-05-01 04:11] LABS: Albumin Globulin Ratio 1.7 (0.9-2); BUN Creatinine Ratio 16.3 (10-20); Bilirubin,Total 0.7 mg/dl (0.2-1.0); Calcium 8.8 mg/dl (8.6-10.3); Creatinine Clr Calc Pharmacy 124.8 ml/min; Globulin 2.4 gm/dl (2.5-4.0); Magnesium 1.8 mg/dl (1.7-2.4); Phosphorus 3.6 mg/dl (2.5-4.9); Potassium 4.1 mmol/L (3.5-5.1); Total Protein 6.4 gm/dl (6.0-8.3)
[2024-05-01 04:13] LABS: ANTI-Xa, UFH(UnfractionatedHep 0.51 IU/ml (0.3-0.7)
[2024-05-01 07:21] LABS: Estimated Average Glucose 131 mg/dl; Hemoglobin A1C 6.2 % (4.5-5.6)
[2024-05-01] MEDS: NICOTINE 21 MG/24 HR TDSY TD SCH (08:04)
[2024-05-01] MEDS: FOLIC ACID 1 MG TAB PO SCH (08:05)
[2024-05-01] MEDS: MULTIVITAMIN TAB PO SCH (08:05)
[2024-05-01] MEDS: THIAMINE HCL 100 MG TAB PO SCH (08:06)
[2024-05-01] MEDS: METOPROLOL SUCC 50MG EXT REL TAB PO SCH (09:34)
--- NOTE | 2024-05-01 09:40 | Hospitalist Progress Note ---
Date of Service May 01, 2024 Assessment & Plan (1) Acute hypoxemic respiratory failure: (2) Abnormal CT of the chest: (3) Influenza A (H1N1): Plan: 53-year-old male with PMH ETOH abuse, tobacco use, chronic back pain presented to ER with c/o SOB, cough, myalgias In ER afebrile, P: 126, R: 44, BP 160/86, 88% on room air up to 95% on 2 L O2 via nasal cannula +Influenza A on biofire respiratory panel. No leukocytosis. Procalcitonin: 0.07 CTA chest noted findings suggestive of bronchiolitis. In ER given 1L NSS, magnesium sulfate 1 g IV, hour-long albuterol neb Had fever overnight Continue tamiflu Continue oxygen supplementation and wean as tolerated Continue solumedrol today. Change to po tomorrow (4) Atrial fibrillation with RVR: Plan: New onset afib RVR. Likely from underlying illness with influenza In ER, he was given Diltiazem 10 mg IV bolus EKG: afib RVR Initial troponin: 17.5. BNP: 593 TTE noted mildly reduced EF of 40-45%, borderline conc LVH, mild to mod global hypokinesis of left ventricle, mod dilated LA, mild MR Diltiazem drip was discontinued with TTE result on day of admission Cardiology eval noted Cardiology increased metoprolol succinate to 100mg BID this AM Continue hep gtt for now. (5) Hypomagnesemia: Plan: Magnesium: 1.5 Got IV repletion Continue to monitor and replete as appropriate (6) Elevated LFTs: (7) H/O ETOH abuse: Plan: On admission, T. bili: 0.9, AST: 47, ALT: 55, alk phos: 64. CTA chest had noted hepatic steatosis, Possible pericholecystic stranding. This may be artifactual. The findings are not strongly suggestive of acute cholecystitis given lack of gallbladder distention. However, patient denied any abd pain and no RUQ tenderness Minimally elevated ALT/AST on admission likely due to alcohol use. Normal today Drinks 8 beers daily. Last ETOH drink was night prior to admission Continue alcohol withdrawal protocol Counseled extensively regarding alcohol cessation Continue thiamine, folic acid Monitor electrolytes (8) Tobacco use: Plan: Smokes 1ppd Nicotine patch Counseled regarding smoking cesssation DVT Prophylaxis On IV heparin gtt as above Full Code Patient will need new PCP set up on discharge as he does not have one I updated about findings and plans I spent a total of 55 minutes coordinating, documenting and providing care for this patient excluding time spent in performance of separately billed services Admission and Anticipated Discharge Date Admission Date: April 30, 2024 Subjective Patient seen and examined Was sleeping but arousable Reports Shortness of breath is improved Reports cough. Denied chest pain, palpitations, dizziness, nausea, vomiting, abd pain Physical Exam Constitutional: + well hydrated and + obese; no acute di stress Eyes: PERRL, conjunctivae normal, anicteric sclerae ENMT: external ear and nose normal, oropharynx normal Respiratory: On nasal cannula, diminished breath sounds, +rhonchi Cardiovascular: Irregularly irregular, tachycardic Gastrointestinal (Abdomen): normal bowel sounds, soft, nontender, no hepatosplenomegaly Neurologic: PERRL, EOMI, accommodation nl, no face palsy, no dysarthria Psychiatric: Was sleepy but arousable, oriented to person, place and month Results & Data Results & Data Vital Signs (Past 12 Hours) Vital Signs Temp Pulse Pulse Resp BP Pulse Ox O2 Del Method 05/01/24 08:08 36.7 C 156 H 22 110/83 93 Nasal Cannula 05/01/24 07:35 201 H 05/01/24 07:23 119 H 22 92 Nasal Cannula 05/01/24 02:39 37.0 C 113 H 19 112/81 94 Nasal Cannula 04/30/24 23:35 36.3 C L 95 H 18 134/84 94 Room Air 04/30/24 22:24 98 H 22 121/92 94 Nasal Cannula 04/30/24 22:23 37.5 C 04/30/24 22:06 99 H O2 Flow Rate 05/01/24 08:08 4 05/01/24 07:35 05/01/24 07:23 4 05/01/24 02:39 4 04/30/24 23:35 04/30/24 22:24 04/30/24 22:23 04/30/24 22:06 Laboratory Results Abnormal lab results 04/30/24 04/30/24 04/30/24 Range/Units 09:47 09:51 11:00 RBC 4.68 L (4.70-6.10) M/uL RDW Std Deviation 48.1 H (36.4-46.3) fL Plt Count 121 L (130-400) K/uL MPV 9.2 L (9.4-12.4) fL Lymph # (Auto) 0.62 L (1.20-3.40) K/uL Gove # (Auto) 0.92 H (0.11-0.59) K/uL Heparin Anti-Xa, Unfract (0.3-0.7) IU/ml VBG pH 7.43 H (7.36-7.41) Sodium 134 L (136-145) mmol/L Chloride 97 L (98-107) mmol/L Glucose 136 H (70-99(Fasting)) mg/dl Hemoglobin A1c (4.5-5.6) % Magnesium 1.5 L (1.7-2.4) mg/dl AST 47 H (13-39) U/L ALT 55 H (7-52) U/L Troponin I High Sens (0-20) pg/ml B-Natriuretic Peptide 593 H (0-100) pg/ml Globulin (2.5-4.0) gm/dl TSH (0.300-4.500) uIu/ml Urine Protein Trace H (Negative) Urine Blood Trace H (Negative) Nasal Influ A H1 2008 PCR (NotDetected) Urine Opiates Screen Pos H (Neg) 04/30/24 04/30/24 04/30/24 Range/Units 15:43 20:18 Unknown RBC (4.70-6.10) M/uL RDW Std Deviation (36.4-46.3) fL Plt Count (130-400) K/uL MPV (9.4-12.4) fL Lymph # (Auto) (1.20-3.40) K/uL Gove # (Auto) (0.11-0.59) K/uL Heparin Anti-Xa, Unfract 0.28 L (0.3-0.7) IU/ml VBG pH (7.36-7.41) Sodium (136-145) mmol/L Chloride (98-107) mmol/L Glucose (70-99(Fasting)) mg/dl Hemoglobin A1c (4.5-5.6) % Magnesium (1.7-2.4) mg/dl AST (13-39) U/L ALT (7-52) U/L Troponin I High Sens 24.3 H 29.3 H (0-20) pg/ml B-Natriuretic Peptide (0-100) pg/ml Globulin (2.5-4.0) gm/dl TSH 0.265 L (0.300-4.500) uIu/ml Urine Protein (Negative) Urine Blood (Negative) Nasal Influ A 2008 PCR DETECTED A (NotDetected) Urine Opiates Screen (Neg) 05/01/24 Range/Units 03:34 RBC 4.60 L (4.70-6.10) M/uL RDW Std Deviation 47.7 H (36.4-46.3) fL Plt Count 108 L (130-400) K/uL MPV (9.4-12.4) fL Lymph # (Auto) (1.20-3.40) K/uL Gove # (Auto) (0.11-0.59) K/uL Heparin Anti-Xa, Unfract (0.3-0.7) IU/ml VBG pH (7.36-7.41) Sodium 134 L (136-145) mmol/L Chloride (98-107) mmol/L Glucose 180 H (70-99(Fasting)) mg/dl Hemoglobin A1c 6.2 H (4.5-5.6) % Magnesium (1.7-2.4) mg/dl AST (13-39) U/L ALT (7-52) U/L Troponin I High Sens (0-20) pg/ml B-Natriuretic Peptide (0-100) pg/ml Globulin 2.4 L (2.5-4.0) gm/dl TSH (0.300-4.500) uIu/ml Urine Protein (Negative) Urine Blood (Negative) Nasal Influ A 2008 PCR (NotDetected) Urine Opiates Screen (Neg)
[2024-05-01 11:08] LABS: ANTI-Xa, UFH(UnfractionatedHep 0.51 IU/ml (0.3-0.7)
--- NOTE | 2024-05-01 12:19 | Cardiology Progress Note ---
Date of Service May 01, 2024 Assessment & Plan (1) Atrial fibrillation with RVR: (2) Influenza A (H1N1): (3) Elevated LFTs: (4) Acute hypoxemic respiratory failure: (5) Cardiomyopathy: Plan 53-year-old male presenting with worsening dyspnea and hypoxic respiratory failure. Found to be in atrial fibrillation with rapid ventricular response, test positive for influenza A. Symptoms preceded by several days increasing cough myalgias malaise. Last evening marked dyspnea with cough. Currently improved with oxygen supplementation. Cardiac issues are as follows 1. Atrial fibrillation with rapid ventricular response: Uncertain duration as patient is unaware of tachypalpitations despite elevated heart rate in ER. Anticoagulation with IV heparin ordered. Patient begun on IV diltiazem however preliminary review echo reflects mildly depressed LV systolic function. Will discontinue IV diltiazem continue oral metoprolol tartrate. Formal echo review pending Will ultimately require sleep apnea evaluation 2. Influenza A, likely precipitant of cardiac arrhythmias though patient hypertensive on presentation. Underlying history of significant alcohol use. Treatment per primary service as well as nicotine and alcohol withdrawal management 05/01/2024 53-year-old admitted with acute hypoxic respiratory failure with influenza A. Newly observed atrial fibrillation found with rapid ventricular response 1. Atrial fibrillation with rapid ventricular response. Metoprolol to tartrate changed to metoprolol succinate 100 mg twice per day. Continue anticoagulation with IV heparin 2. Cardiomyopathy uncertain etiology. Possibilities include atrial fibrilla tion for longer duration, alcohol induced, ischemic. 3. Hypertension with agitation now improving Recommendations: As above continue metoprolol succinate. May titrate higher if necessary we will keep n.p.o. after midnight tonight. Reassess in a.m. for consideration of KALEY guided cardioversion or cardiac catheterization as part of sequential evaluation of patient's current complaints Admission and Anticipated Discharge Date Admission Date: April 30, 2024 Subjective Patient seen and personally examined. Care and management discussed with . Chart and medications, telemetry reviewed Patient remains in atrial fibrillation with elevated ventricular response rate Currently sleeping/sedated due as part of EtOH withdrawal protocol. No noted chest pain or worsening cough. Patient agitated and markedly hypertensive overnight now better Review of Systems Review of Systems: All systems reviewed & are unremarkable except as noted in Subjective Physical Exam Constitutional: + ill appearing and + obese Eyes: PERRL, conjunctivae normal, anicteric sclerae ENMT: external ear and nose normal, oropharynx normal Neck: trachea midline, no thyromegaly + thick neck Respiratory: Auscultation: + bronchovesicular breath sounds Cardiovascular: Rate/Rhythm: + tachycardic and + irregularly irregular Heart Sounds: normal S1 and normal S2; no murmur Gastrointestinal (Abdomen): normal bowel sounds, soft, nontender, no hepatosplenomegaly Skin: no rashes, warm and dry Results & Data Vital Signs (Past 12 Hours) Vital Signs Temp Pulse Pulse Resp BP Pulse Ox O2 Del Method 05/01/24 10:38 36.4 C L 108 H 22 106/80 93 Nasal Cannula 05/01/24 09:50 Nasal Cannula 05/01/24 08:08 36.7 C 156 H 22 110/83 93 Nasal Cannula 05/01/24 07:35 201 H 05/01/24 07:23 119 H 22 92 Nasal Cannula 05/01/24 02:39 37.0 C 113 H 19 112/81 94 Nasal Cannula O2 Flow Rate 05/01/24 10:38 4 05/01/24 09:50 4 05/01/24 08:08 4 05/01/24 07:35 05/01/24 07:23 4 05/01/24 02:39 4 Laboratory Results Laboratory Results - last 24 hr 04/30/24 04/30/24 04/30/24 09:52 11:00 15:43 WBC RBC Hgb Hct MCV MCH MCHC RDW Std Deviation RDW Coeff of Cong Plt Count MPV Heparin Anti-Xa, Unfract Sodium Potassium Chloride Carbon Dioxide Anion Gap BUN Creatinine Est Cr Clr Drug Dosing eGFR BUN/Creatinine Ratio Glucose Estimat Average Glucose Hemoglobin A1c Calcium Phosphorus 2.6 Magnesium Total Bilirubin AST ALT Alkaline Phosphatase Troponin I High Sens 24.3 H Total Protein Albumin Globulin Albumin/Globulin Ratio Procalcitonin 0.07 TSH 0.265 L Free T4 0.82 Urine Opiates Screen Pos H U Codeine Confrm GC/MS Pending Ur Morphine (GC/MS) Pending Ur Hydrocodone (GC/MS) Pending Ur Norhydrocodone Pending Ur Noroxycodone Pending Urine Oxycodone (GC/MS) Pending U Oxymorphone GC/MS Pending Ur Methadone, Qual Neg Ur Hydromorphone (GC/MS) Pending Urine Fentanyl Screen Neg Urine Barbiturates Neg Ur Phencyclidine (PCP) Neg U Amphetamin/Meth Scrn Neg MDMA (Ecstasy) Screen Neg U Benzodiazepines Scrn Neg Ur Cocaine Metabolite Neg U Marijuana (THC) Screen Neg Drug Screen Comment Pending Ethyl Alcohol mg/dL < 10.0 04/30/24 05/01/24 05/01/24 20:18 03:34 10:18 WBC 9.38 RBC 4.60 L Hgb 15.2 Hct 44.2 MCV 96.1 MCH 33.0 MCHC 34.4 RDW Std Deviation 47.7 H RDW Coeff of Cong 13.3 Plt Count 108 L MPV 9.7 Heparin Anti-Xa, Unfract 0.28 L 0.51 0.51 Sodium 134 L Potassium 4.1 Chloride 99 Carbon Dioxide 28 Anion Gap 7 BUN 14 Creatinine 0.86 Est Cr Clr Drug Dosing 124.8 eGFR 104.18 BUN/Creatinine Ratio 16.3 Glucose 180 H Estimat Average Glucose 131 Hemoglobin A1c 6.2 H Calcium 8.8 Phosphorus 3.6 D Magnesium 1.8 Total Bilirubin 0.7 AST 32 ALT 41 Alkaline Phosphatase 49 Troponin I High Sens 29.3 H Total Protein 6.4 Albumin 4.0 Globulin 2.4 L Albumin/Globulin Ratio 1.7 Procalcitonin TSH Free T4 Urine Opiates Screen U Codeine Confrm GC/MS Ur Morphine (GC/MS) Ur Hydrocodone (GC/MS) Ur Norhydrocodone Ur Noroxycodone Urine Oxycodone (GC/MS) U Oxymorphone GC/MS Ur Methadone, Qual Ur Hydromorphone (GC/MS) Urine Fentanyl Screen Urine Barbiturates Ur Phencyclidine (PCP) U Amphetamin/Meth Scrn MDMA (Ecstasy) Screen U Benzodiazepines Scrn Ur Cocaine Metabolite U Marijuana (THC) Screen Drug Screen Comment Ethyl Alcohol mg/dL
--- NOTE | 2024-05-01 14:01 | Electrocardiogram Report ---
Test Reason : Blood Pressure : */* mmHG Vent. Rate : 98 BPM Atrial Rate : * BPM P-R Int : * ms QRS Dur : 88 ms QT Int : 360 ms P-R-T Axes : * 52 67 degrees QTcB Int : 459 ms Atrial fibrillation T wave abnormality, consider anterior ischemia Abnormal ECG When compared with ECG of 30-Apr-2024 09:31, T wave inversion now evident in Anterior leads Confirmed by Miguel Edmonds [id number] on 05/01/2024 2:01:21 PM Referred By: REFERRED SELF Confirmed By: Miguel Edmonds
[2024-05-01] MEDS: GABAPENTIN 600 MG TAB PO SCH (14:08)
[2024-05-02 06:47] LABS: Hematocrit (blood only) 44.7 % (42.0-52.0); Mean Corpuscular Hemoglobin 32.7 pg (25.0-34.0); Mean Corpuscular Hgb Conc 33.6 g/dL (32.0-36.0); Mean Corpuscular Volume 97.4 fL (80.0-100.0); Mean Platelet Volume 9.9 fL (9.4-12.4); Platelet Count 115 K/uL (130-400); RDW Coefficient of Variation 13.5 % (11.5-14.5); Red Blood Count 4.59 M/uL (4.70-6.10); White Blood Count 18.08 K/ul (4.8-10.8)
[2024-05-02 06:59] LABS: Albumin Globulin Ratio 1.3 (0.9-2); Albumin Level 3.5 gm/dl (3.4-5.0); BUN Creatinine Ratio 21.8 (10-20); Bilirubin,Total 0.4 mg/dl (0.2-1.0); Calcium 8.8 mg/dl (8.6-10.3); Creatinine Clr Calc Pharmacy 123.4 ml/min; Globulin 2.6 gm/dl (2.5-4.0); Phosphorus 3.6 mg/dl (2.5-4.9); Potassium 3.9 mmol/L (3.5-5.1); Total Protein 6.1 gm/dl (6.0-8.3)
[2024-05-02 07:24] LABS: ANTI-Xa, UFH(UnfractionatedHep 0.42 IU/ml (0.3-0.7)
--- NOTE | 2024-05-02 10:08 | Hospitalist Progress Note ---
Date of Service May 02, 2024 Assessment & Plan (1) Acute hypoxemic respiratory failure: (2) Influenza A (H1N1): Plan: per Dr. Stephenson's notes with addendum: 53-year-old male with PMH ETOH abuse, tobacco use, chronic back pain presented to ER with c/o SOB, cough, myalgias In ER afebrile, P: 126, R: 44, BP 160/86, 88% on room air up to 95% on 2 L O2 via nasal cannula +Influenza A on biofire respiratory panel. No leukocytosis. Procalcitonin: 0.07 CTA chest noted findings suggestive of bronchiolitis. In ER given 1L NSS, magnesium sulfate 1 g IV, hour-long albuterol neb Had fever overnight Continue tamiflu Continue oxygen supplementation and wean as tolerated Continue solumedrol today. Change to po tomorrow 05/02 still on 3 L clear breath sounds bilaterally continue tamiflu, nebs change solumedrol to prednisone 20mg po daily wean off O2 (3) Atrial fibrillation with RVR: Plan: New onset afib RVR. Likely from underlying illness with influenza In ER, he was given Diltiazem 10 mg IV bolus EKG: afib RVR Initial troponin: 17.5. BNP: 593 TTE noted mildly reduced EF of 40-45%, borderline conc LVH, mild to mod global hypokinesis of left ventricle, mod dilated LA, mild MR Diltiazem drip was discontinued with TTE result on day of admission Cardiology eval noted Cardiology increased metoprolol succinate to 100mg BID this AM Continue hep gtt for now. 05/02 remains on SR, HR 90-100s for possible CV vs cardiac cath today continue Metoprolol PO and Heparin drip (4) Abnormal CT of the chest: Plan: 1. No pulmonary emboli identified although segmental and subsegmental pulmonary arteries suboptimally assessed due to respiratory motion. 2. Small cluster of tree-in-bud nodules within the right lower lobe suggestive of an infectious etiology such as bronchiolitis. A chest CT in 3 months to ensure resolution is recommended. 3. Mildly enlarged mediastinal and bilateral hilar lymph nodes. These are probably reactive but should be assessed on follow-up CT to ensure resolution. 4. Possible pericholecystic stranding. This may be artifactual. The findings are not strongly suggestive of acute cholecystitis given lack of gallbladder distention. However, if right upper quadrant pain, ultrasound is recommended. 5. Hepatic steatosis. will need outpatient repeat CT chest and follow up (5) Hypomagnesemia: Plan: Magnesium: 1.5 Got IV repletion Continue to monitor and replete as appropriate (6) Elevated LFTs: (7) H/O ETOH abuse: Plan: On admission, T. bili: 0.9, AST: 47, ALT: 55, alk phos: 64. CTA chest had noted hepatic steatosis, Possible pericholecystic stranding. This may be artifactual. The findings are not strongly suggestive of acute cholecystitis given lack of gallbladder distention. However, patient denied any abd pain and no RUQ tenderness Minimally elevated ALT/AST on admission likely due to alcohol use. Normal today Drinks 8 beers daily. Last ETOH drink was night prior to admission Continue alcohol withdrawal protocol Counseled extensively regarding alcohol cessation Continue thiamine, folic acid Monitor electrolytes 05/02 no overt signs of alcohol withdrawal continue Gabapentin protocol (8) Tobacco use: Plan: Smokes 1ppd Nicotine patch Counseled regarding smoking cesssation DVT Prophylaxis On IV heparin gtt as above Full Code Patient will need new PCP set up on discharge as he does not have one Admission and Anticipated Discharge Date Admission Date: April 30, 2024 Subjective ff up for respiratory failure, flu positive, new onset a fib, etc seen resting in bed, on 3 L O2, sleeping but easily awakened states he feels fine overall breathing continues to improve, less cough no chest pain, palpitations, dizziness, shortness of breath no tremors, anxiety, confusion no other symptoms Review of Systems Review of Systems: all noted and negative except for above Physical Exam Physical Exam: General- oriented x 3, not in distress, speaks in sentences with no effort or accessory muscle use Eyes- anicteric Neck- no JVD Lungs- clear breath sounds bilaterally, no rales/wheezes Heart- normal rate, regular rhythm; no murmurs Abdomen- normal bowel sounds, nondistended, soft, nontender Extremities- no pretibial edema, no calf tenderness Neuro- alert, oriented x 3; no gross focal neurologic deficits Skin- warm & dry Results & Data Results & Data Vital Signs (Past 12 Hours) Vital Signs Temp Pulse Pulse Resp BP Pulse Ox O2 Del Method 05/02/24 08:00 131 H 05/02/24 07:33 36.6 C 93 H 18 112/84 95 Nasal Cannula 05/02/24 07:09 103 H 19 97 Nasal Cannula 05/02/24 05:30 36.6 C 93 H 18 128/85 95 Nasal Cannula 05/02/24 01:52 102 H 17 96 Nasal Cannula 05/01/24 22:37 36.7 C 119 H 19 115/91 94 Nasal Cannula O2 Flow Rate 05/02/24 08:00 05/02/24 07:33 3 05/02/24 07:09 4 05/02/24 05:30 4 05/02/24 01:52 4 05/01/24 22:37 4 all noted and reviewed including below
--- NOTE | 2024-05-02 10:23 | Cardiology Progress Note ---
Date of Service May 02, 2024 Assessment & Plan (1) Atrial fibrillation with RVR: (2) Influenza A (H1N1): (3) Elevated LFTs: (4) Acute hypoxemic respiratory failure: (5) Cardiomyopathy: Plan 53-year-old male presenting with worsening dyspnea and hypoxic respiratory failure. Found to be in atrial fibrillation with rapid ventricular response, test positive for influenza A. Symptoms preceded by several days increasing cough myalgias malaise. Last evening marked dyspnea with cough. Currently improved with oxygen supplementation. Cardiac issues are as follows 1. Atrial fibrillation with rapid ventricular response: Uncertain duration as patient is unaware of tachypalpitations despite elevated heart rate in ER. Anticoagulation with IV heparin ordered. Patient begun on IV diltiazem however preliminary review echo reflects mildly depressed LV systolic function. Will discontinue IV diltiazem continue oral metoprolol tartrate. Formal echo review pending Will ultimately require sleep apnea evaluation 2. Influenza A, likely precipitant of cardiac arrhythmias though patient hypertensive on presentation. Underlying history of significant alcohol use. Treatment per primary service as well as nicotine and alcohol withdrawal management 05/01/2024 53-year-old admitted with acute hypoxic respiratory failure with influenza A. Newly observed atrial fibrillation found with rapid ventricular response 1. Atrial fibrillation with rapid ventricular response. Metoprolol to tartrate changed to metoprolol succinate 100 mg twice per day. Continue anticoagulation with IV heparin 2. Cardiomyopathy uncertain etiology. Possibilities include atrial fibrilla tion for longer duration, alcohol induced, ischemic. 3. Hypertension with agitation now improving Recommendations: As above continue metoprolol succinate. May titrate higher if necessary we will keep n.p.o. after midnight tonight. Reassess in a.m. for consideration of KALEY guided cardioversion or cardiac catheterization as part of sequential evaluation of patient's current complaints 05/02/2024 Patient clinically improving though still with respiratory issues large amounts of productive sputum, oxygen demands. Remains in atrial fibrillation with intermittently elevated ventricular response rates Plan: Single dose IV furosemide today. Continue current dose of metoprolol succinate Plan KALEY synchronized electrocardioversion for a.m., n.p.o. after midnight tonight. May eat today Admission and Anticipated Discharge Date Admission Date: April 30, 2024 Subjective Patient was seen and examined, chart, telemetry reviewed. Patient much brighter today. Still coughing moderate amounts of thick secretions. Respiratory status however improved. Still requiring 3 L nasal cannula Remains in atrial fibrillation with variable heart rate response No chest pain or worsening shortness of breath. No bleeding issues on anticoagulation with IV heparin. Review of Systems Review of Systems: All systems reviewed & are unremarkable except as noted in Subjective Physical Exam Constitutional: + obese; no acute distress Eyes: PERRL, conjunctivae normal, anicteric sclerae ENMT: external ear and nose normal, oropharynx normal Neck: trachea midline, no thyromegaly + thick neck Respiratory: Auscultation: + bronchovesicular breath sounds Cardiovascular: Rate/Rhythm: + tachycardic and + irregularly irregular Heart Sounds: normal S1 and normal S2; no murmur Gastrointestinal (Abdomen): normal bowel sounds, soft, nontender, no hepatosplenomegaly Musculoskeletal: no cyanosis or clubbing, extremities motor strength 5/5 Skin: no rashes, warm and dry Neurologic: PERRL, EOMI, accommodation nl, no face palsy, no dysarthria Results & Data Vital Signs (Past 12 Hours) Vital Signs Temp Pulse Pulse Resp BP Pulse Ox O2 Del Method 05/02/24 08:00 131 H 05/02/24 07:33 36.6 C 93 H 18 112/84 95 Nasal Cannula 05/02/24 07:09 103 H 19 97 Nasal Cannula 05/02/24 05:30 36.6 C 93 H 18 128/85 95 Nasal Cannula 05/02/24 01:52 102 H 17 96 Nasal Cannula 05/01/24 22:37 36.7 C 119 H 19 115/91 94 Nasal Cannula O2 Flow Rate 05/02/24 08:00 05/02/24 07:33 3 05/02/24 07:09 4 05/02/24 05:30 4 05/02/24 01:52 4 05/01/24 22:37 4 Laboratory Results Laboratory Results - last 24 hr 05/01/24 05/02/24 10:18 06:19 WBC 18.08 H RBC 4.59 L Hgb 15.0 Hct 44.7 MCV 97.4 MCH 32.7 MCHC 33.6 RDW Std Deviation 49.0 H RDW Coeff of Cong 13.5 Plt Count 115 L MPV 9.9 Heparin Anti-Xa, Unfract 0.51 0.42 Sodium 136 Potassium 3.9 Chloride 101 Carbon Dioxide 29 Anion Gap 6 BUN 19 Creatinine 0.87 Est Cr Clr Drug Dosing 123.4 eGFR 103.82 BUN/Creatinine Ratio 21.8 H Glucose 163 H Calcium 8.8 Phosphorus 3.6 Magnesium 2.0 Total Bilirubin 0.4 AST 22 ALT 30 Alkaline Phosphatase 44 Total Protein 6.1 Albumin 3.5 Globulin 2.6 Albumin/Globulin Ratio 1.3
--- NOTE | 2024-05-02 12:12 | Anesthesiology Consultation ---
Date of Service May 02, 2024 Assessment & Plan (1) Encounter for pre-operative examination: Chart Review Chart Review: Acceptable Risk for Surgery History Surgery Operation Date: 05/03/24 07:15 Proposed Procedures p Transesophageal Echo, Cardioversion w/Anesthesia - Homero Rollins MD Height/Weight Height: 5 ft 9 in Weight: 113.6 kg Allergies Allergy/AdvReac Type Severity Reaction Status Date / Time No Known Drug Allergies Allergy Unknown . Verified 03/12/10 07:34 Medications Home Medications Medication Instructions Recorded Confirmed Last Taken No Known Home Medications 04/30/24 04/30/24 Unknown Active Medications Generic Name Dose Route Start Last Admin Trade Name Freq PRN Reason Stop Dose Admin Acetaminophen 650 mg 04/30/24 15:02 05/01/24 21:23 Acetaminophen 325 Mg Tab PO 05/30/24 15:01 650 mg Q4H PRN Administration Pain or Fever Folic Acid 1 mg 05/01/24 09:00 05/02/24 08:20 Folic Acid 1 Mg Tab PO 05/31/24 08:59 1 mg QAM ROSA Administration Guaifenesin 1,200 mg 04/30/24 21:00 05/02/24 08:20 Guaifenesin 600 Mg Tabcr PO 05/30/24 20:59 1,200 mg Q12 ROSA Administration Heparin Sodium/Dextrose 25,000 units in 500 mls @ 22 mls/hr 04/30/24 14:00 05/02/24 07:29 Heparin Sodium/Dextrose IV 05/30/24 13:59 1,100 units/hr .[id number] ROSA 22 mls/hr Titration Protocol 1,100 UNITS/HR Ipratropium [place] 0.5 mg 04/30/24 15:15 05/02/24 07:08 Ipratropium [place] Neb Soln 0.02% 0.5mg/2.5ml Vial NEB 05/30/24 15:14 0.5 mg Q6R ROSA Administration Levalbuterol HCl 1.25 mg 04/30/24 15:15 05/02/24 07:08 Levalbuterol 1.25 Mg/3 Ml Neb NEB 05/30/24 15:14 1.25 mg Q6R ROSA Administration Lorazepam 1 mg 04/30/24 23:55 05/01/24 08:17 Lorazepam 2 Mg/1 Ml Vial IV 05/30/24 23:54 1 mg UD PRN Administration EtOH Withdrawal AWSS Score 6,7 Protocol Lorazepam 2 mg 04/30/24 23:55 05/01/24 21:18 Lorazepam 2 Mg/1 Ml Vial IV 05/30/24 23:54 2 mg UD PRN Administration EtOH Withdrawal AWSS Score 8,9 Protocol Metoprolol Succinate 100 mg 05/01/24 09:00 05/02/24 08:21 Metoprolol Succ 50mg Ext Rel Tab PO 05/31/24 08:59 100 mg BID ROSA Administration Miscellaneous 1 each 05/01/24 08:59 05/02/24 08:19 Remove Nicoderm Patch N/A 05/31/24 08:58 1 each DAILY@0859 ROSA Administration Multivitamins 1 tab 05/01/24 09:00 05/02/24 08:21 Multivitamin Tab PO 05/31/24 08:59 1 tab QAM ROSA Administration Nicotine 1 patch 05/01/24 09:00 05/02/24 08:22 Nicotine 21 Mg/24 Hr Tdsy TD 05/31/24 08:59 1 patch QAM ROSA Administration Oseltamivir Phosphate 75 mg 04/30/24 21:00 05/02/24 08:21 Oseltamivir Phosphate 75 Mg Cap PO 05/05/24 20:59 75 mg BID ROSA Administration Protocol Thiamine HCl 100 mg 05/01/24 09:00 05/02/24 08:21 Thiamine Hcl 100 Mg Tab PO 05/31/24 08:59 100 mg QAM ROSA Administration Past Medical History Medical History (Updated 05/02/24 @ 12:12 by Drake Polanco MD) Cardiomyopathy Atrial fibrillation with RVR Acute hypoxemic respiratory failure Tobacco use H/O ETOH abuse Past Family History Family History Other Prostate cancer Past Surgical History Surgical History History of appendectomy Social History Smoking Status: Current every day smoker Smoking cigarettes per day: 1ppd Do You Dip or Chew Tobacco: No Hx Alcohol Use: Yes Alcohol type: beer alcohol intake frequency: 3 or more drinks per day Hx Substance Use: Yes substance use type: painkillers Substance Use Type Other:: "Pain Pills not perscribed to me" Last Used Substance: Just Prior to Arrival Physical Exam Vital Signs Last Vital Signs Temp 36.3 C L 05/02/24 10:56 Pulse 111 H 05/02/24 10:56 Resp 19 05/02/24 10:56 BP 122/100 05/02/24 10:56 Pulse Ox 94 05/02/24 10:56 O2 Del Method Room Air 05/02/24 10:56 O2 Flow Rate 3 05/02/24 07:33 Testing Laboratory Results 05/02/24 06:19 05/02/24 06:19 PT 11.4 Seconds (9.0-12.0) 04/30/24 09:51 INR 1.1 (0.9-1.1) 04/30/24 09:51 Hemoglobin A1c 6.2 % (4.5-5.6) H 05/01/24 03:34 Urine Color Yellow 04/30/24 11:00 Urine Appearance Clear (Clear) 04/30/24 11:00 Urine pH 6.0 (4.5-7.5) 04/30/24 11:00 Ur Specific [place] 1.013 (1.000-1.030) 04/30/24 11:00 Urine Protein Trace (Negative) H 04/30/24 11:00 Urine Glucose (UA) Negative (Negative) 04/30/24 11:00 Urine Ketones Negative (Negative) 04/30/24 11:00 Urine Nitrite Negative (Negative) 04/30/24 11:00 Ur Leukocyte Esterase Negative (Negative) 04/30/24 11:00 Urine WBC (Auto) 0-5 /hpf (0-5) 04/30/24 11:00 Urine RBC (Auto) 0-2 /hpf (0-2) 04/30/24 11:00 U Hyaline Cast (Auto) 0-2 /lpf (0-2) 04/30/24 11:00 U Epithel Cells (Auto) 0-2 /hpf (0-2) 04/30/24 11:00 Urine Bacteria (Auto) None Seen (None Seen) 04/30/24 11:00 Electrocardiogram Date: 05/01/24 Findings: + NSST changes and + AFIB @ (98) Echocardiogram Date: 04/30/24 EF: 40-45% RWMA: + hypokinetic (mild to moderate global) Valvular Disease: + MR (mild)
[2024-05-02] MEDS: POTASSIUM CHLORIDE CRTAB 20 MEQ TABCR PO ONE (12:15)
[2024-05-02] MEDS: FUROSEMIDE INJ 20 MG/2 ML VIAL IV ONE (12:15)
[2024-05-02] MEDS: GABAPENTIN 600 MG TAB PO SCH (19:55)
[2024-05-03 06:18] LABS: ANTI-Xa, UFH(UnfractionatedHep 0.23 IU/ml (0.3-0.7)
[2024-05-03] MEDS ORDERED: BENZOCAINE/TETRACAIN/BUTAM 50 APPLN/5 GM CAN EXT ONE (07:08)
--- NOTE | 2024-05-03 07:40 | Cardioversion ---
Date of Service May 03, 2024 Electrical Cardioversion Rpt Electrical Cardioversion Report Patietn seen and examined. Procedure and risks of KALEY guided synchronized cardioversion discussed in detail. Informed consent obtained Formal TIMEOUT performed. Patient sedated via anesthesia consult with continuos HR, BP, 02sat, endtidal C02 monitoring. KALEY performed without difficulty No contraindications to cardioversion Synchronized biphasic shock administered with 200J, 360J with succesful conversion to sinus Patient aroused having tolerated well.
[2024-05-03] MEDS ORDERED: LIDOCAINE 2% 2 ML VIAL/AMP(20MG/ML) INFIL ONE (08:00)
[2024-05-03] MEDS ORDERED: PROPOFOL IV EMULSION 10 MG/ML 20 ML VIAL IV ONE (08:00)
--- NOTE | 2024-05-03 08:35 | Anesthesiology Progress Note ---
Date of Service May 03, 2024 Anesthesia Post Procedure Vital Signs Vital Signs: Temp Pulse Pulse Resp BP Pulse Ox Pulse Ox 05/03/24 08:02 86 16 122/91 97 05/03/24 07:48 87 16 102/82 97 05/03/24 07:43 83 18 110/73 94 05/03/24 07:33 93 H 05/03/24 07:16 36.8 C 105 H 16 134/95 100 05/03/24 02:55 36.7 C 90 18 118/94 92 05/03/24 01:43 119/99 05/02/24 22:31 36.8 C 108 H 18 129/107 H 95 05/02/24 22:11 125 H 05/02/24 20:00 05/02/24 19:15 36.7 C 126 H 19 119/85 91 05/02/24 18:26 110 H 16 95 05/02/24 15:35 36.7 C 126 H 16 108/91 93 05/02/24 15:00 92 05/02/24 13:04 110 H 20 95 05/02/24 10:56 36.3 C L 111 H 19 122/100 94 05/02/24 10:34 O2 Del Method O2 Del Method O2 Flow Rate 05/03/24 08:02 Room Air 0 05/03/24 07:48 Oxymask 4 05/03/24 07:43 Oxymask 8 05/03/24 07:33 05/03/24 07:16 Room Air 05/03/24 02:55 Room Air 05/03/24 01:43 05/02/24 22:31 Room Air 05/02/24 22:11 05/02/24 20:00 Room Air 05/02/24 19:15 Room Air 05/02/24 18:26 Room Air 05/02/24 15:35 Room Air 05/02/24 15:00 Room Air 05/02/24 13:04 Room Air 05/02/24 10:56 Room Air 05/02/24 10:34 Room Air Pain Intensity Abdomen: Pain Intensity: 6 Transfer of Care Handoff Completed per policy Notes Mental Status: alert / awake / arousable and participated in evaluation Patient Amnestic to Procedure: Yes Nausea / Vomiting: adequately controlled Pain: adequately controlled Airway Patency, RR, SpO2: stable & adequate BP & HR: stable & adequate Hydration State: stable & adequate Anesthetic Complications: no major complications apparent
[2024-05-03 12:29] LABS: Codeine Urine NEGATIVE ng/mL (<50); Hydrocodone Urine 924 ng/mL (<50); Hydromor Urine 666 ng/mL (<50); Morphine Urine NEGATIVE ng/mL (<50); Norhydrocodone Conf Ur 463 ng/mL (<50); Noroxycodone Urine NEGATIVE ng/mL (<50); Oxycodone Urine NEGATIVE ng/mL (<50); Oxymorph Urine NEGATIVE ng/mL (<50)
[2024-05-03 13:02] LABS: ANTI-Xa, UFH(UnfractionatedHep 0.21 IU/ml (0.3-0.7)
--- NOTE | 2024-05-03 14:03 | Cardiology Progress Note ---
Date of Service May 03, 2024 Assessment & Plan (1) Atrial fibrillation with RVR: (2) Influenza A (H1N1): (3) Elevated LFTs: (4) Cardiomyopathy: Plan 53-year-old male presenting with worsening dyspnea and hypoxic respiratory failure. Found to be in atrial fibrillation with rapid ventricular response, test positive for influenza A. Symptoms preceded by several days increasing cough myalgias malaise. Last evening marked dyspnea with cough. Currently improved with oxygen supplementation. Cardiac issues are as follows 1. Atrial fibrillation with rapid ventricular response: Uncertain duration as patient is unaware of tachypalpitations despite elevated heart rate in ER. Anticoagulation with IV heparin ordered. Patient begun on IV diltiazem however preliminary review echo reflects mildly depressed LV systolic function. Will discontinue IV diltiazem continue oral metoprolol tartrate. Formal echo review pending Will ultimately require sleep apnea evaluation 2. Influenza A, likely precipitant of cardiac arrhythmias though patient hypertensive on presentation. Underlying history of significant alcohol use. Treatment per primary service as well as nicotine and alcohol withdrawal management 05/01/2024 53-year-old admitted with acute hypoxic respiratory failure with influenza A. Newly observed atrial fibrillation found with rapid ventricular response 1. Atrial fibrillation with rapid ventricular response. Metoprolol to tartrate changed to metoprolol succinate 100 mg twice per day. Continue anticoagulation with IV heparin 2. Cardiomyopathy uncertain etiology. Possibilities include atrial fibrillation for longer duration, alcohol induced, ischemic. 3. Hypertension with agitation now improving Recommendations: As above continue metoprolol succinate. May titrate higher if necessary we will keep n.p.o. after midnight tonight. Reassess in a.m. for consideration of KALEY guided cardioversion or cardiac catheterization as part of sequential evaluation of patient's current complaints 05/02/2024 Patient clinically improving though still with respiratory issues large amounts of productive sputum, oxygen demands. Remains in atrial fibrillation with intermittently elevated ventricular response rates Plan: Single dose IV furosemide today. Continue current dose of metoprolol succinate Plan KALEY synchronized electrocardioversion for a.m., n.p.o. after midnight tonight. May eat today 05/03/2024 1. Atrial fibrillation, paroxysmal: Successful conversion to sinus today. Continue current metoprolol succinate. Will require anticoagulation, discharge on Eliquis. Needs formal sleep study and sleep apnea evaluation 2. Diffuse cardiomyopathy with reduced ejection fraction. Will initiate guideline directed therapies with Entresto beginning today continue metoprolol succinate. Consider eplerenone/spironolactone. Discussed options of management occluding medical therapy and diagnostic imaging. Will need ischemic workup post discharge. Discussed cardiac catheterization this admission but wishes medical treatment first. Continue IV heparin until discharge Hopefully some LV recovery after maintaining sinus rhythm. Will need mandated alcohol cessation Admission and Anticipated Discharge Date Admission Date: April 30, 2024 Subjective Patient seen and examined both pre and post synchronized electrical cardioversion at an afternoon rounding. Chart, medications, telemetry reviewed. Successful conversion to sinus rhythm this morning after KALEY clearance. Remains in sinus rhythm this afternoon. Echocardiogram continues to demonstrate diffuse LV dysfunction. No signs or symptoms of worsening heart failure. Patient notes clearing congestion from chest with cough Review of Systems Review of Systems: All systems reviewed & are unremarkable except as noted in Subjective Physical Exam Constitutional: + obese; no acute distress Eyes: PERRL, conjunctivae normal, anicteric sclerae ENMT: external ear and nose normal, oropharynx normal Neck: trachea midline, no thyromegaly + thick neck Respiratory: Auscultation: + bronchovesicular breath sounds Cardiovascular: Rate/Rhythm: regular rhythm Heart Sounds: normal S1 and normal S2; no murmur Gastrointestinal (Abdomen): normal bowel sounds, soft, nontender, no hepatosplenomegaly Musculoskeletal: no cyanosis or clubbing, extremities motor strength 5/5 Skin: no rashes, warm and dry Neurologic: PERRL, EOMI, accommodation nl, no face palsy, no dysarthria Results & Data Vital Signs (Past 12 Hours) Vital Signs Temp Pulse Pulse Resp BP Pulse Ox O2 Del Method 05/03/24 13:55 88 05/03/24 10:46 36.8 C 84 17 121/93 96 Room Air 05/03/24 08:52 128/90 05/03/24 08:49 90 05/03/24 08:40 86 20 128/88 97 Room Air 05/03/24 08:10 Room Air 05/03/24 08:10 83 19 122/92 95 Room Air 05/03/24 08:02 86 16 122/91 97 Room Air 05/03/24 07:48 87 16 102/82 97 Oxymask 05/03/24 07:43 83 18 110/73 94 Oxymask 05/03/24 07:33 93 H 05/03/24 07:16 36.8 C 105 H 16 134/95 100 Room Air 05/03/24 02:55 36.7 C 90 18 118/94 92 Room Air O2 Flow Rate 05/03/24 13:55 05/03/24 10:46 05/03/24 08:52 05/03/24 08:49 05/03/24 08:40 05/03/24 08:10 05/03/24 08:10 05/03/24 08:02 0 05/03/24 07:48 4 05/03/24 07:43 8 05/03/24 07:33 05/03/24 07:16 05/03/24 02:55 Laboratory Results Laboratory Results - last 24 hr 04/30/24 05/03/24 05/03/24 11:00 05:24 12:12 Heparin Anti-Xa, Unfract 0.23 L 0.21 L U Codeine Confrm GC/MS NEGATIVE Ur Morphine (GC/MS) NEGATIVE Ur Hydrocodone (GC/MS) 924 H Ur Norhydrocodone 463 H Ur Noroxycodone NEGATIVE Urine Oxycodone (GC/MS) NEGATIVE U Oxymorphone GC/MS NEGATIVE Ur Hydromorphone (GC/MS) 666 H Drug Screen Comment SEE NOTE
[2024-05-03] MEDS: LORazepam 0.5 MG TAB PO STA (16:30)
--- NOTE | 2024-05-03 18:34 | Hospitalist Progress Note ---
Date of Service May 03, 2024 Assessment & Plan (1) Acute hypoxemic respiratory failure: (2) Influenza A (H1N1): Plan: per Dr. Stephenson's notes with addendum: 53-year-old male with PMH ETOH abuse, tobacco use, chronic back pain presented to ER with c/o SOB, cough, myalgias In ER afebrile, P: 126, R: 44, BP 160/86, 88% on room air up to 95% on 2 L O2 via nasal cannula +Influenza A on biofire respiratory panel. No leukocytosis. Procalcitonin: 0.07 CTA chest noted findings suggestive of bronchiolitis. In ER given 1L NSS, magnesium sulfate 1 g IV, hour-long albuterol neb Had fever overnight Continue tamiflu Continue oxygen supplementation and wean as tolerated Continue solumedrol today. Change to po tomorrow 05/02 still on 3 L clear breath sounds bilaterally continue tamiflu, nebs change solumedrol to prednisone 20mg po daily wean off O2 05/03 significantly improved now on room air continue Tamiflu, Prednisone (3) Atrial fibrillation with RVR: Plan: Cardiomyopathy New onset afib RVR. Likely from underlying illness with influenza In ER, he was given Diltiazem 10 mg IV bolus EKG: afib RVR Initial troponin: 17.5. BNP: 593 TTE noted mildly reduced EF of 40-45%, borderline conc LVH, mild to mod global hypokinesis of left ventricle, mod dilated LA, mild MR Diltiazem drip was discontinued with TTE result on day of admission Cardiology eval noted Cardiology increased metoprolol succinate to 100mg BID this AM Continue hep gtt for now. 05/02 remains on SR, HR 90-100s for possible CV vs cardiac cath today continue Metoprolol PO and Heparin drip 05/03 s/p Cardioversion continue Metoprolol, Heparin drip Entresto started upon discussion with patient and his , he is now agreeable for cardiac cath Dr. Rollins notified NPO post midnight (4) Abnormal CT of the chest: Plan: 1. No pulmonary emboli identified although segmental and subsegmental pulmonary arteries suboptimally assessed due to respiratory motion. 2. Small cluster of tree-in-bud nodules within the right lower lobe suggestive of an infectious etiology such as bronchiolitis. A chest CT in 3 months to ensure resolution is recommended. 3. Mildly enlarged mediastinal and bilateral hilar lymph nodes. These are probably reactive but should be assessed on follow-up CT to ensure resolution. 4. Possible pericholecystic stranding. This may be artifactual. The findings are not strongly suggestive of acute cholecystitis given lack of gallbladder distention. However, if right upper quadrant pain, ultrasound is recommended. 5. Hepatic steatosis. will need outpatient repeat CT chest and follow up (5) Hypomagnesemia: Plan: Magnesium: 1.5 Got IV repletion Continue to monitor and replete as appropriate (6) Elevated LFTs: (7) H/O ETOH abuse: Plan: On admission, T. bili: 0.9, AST: 47, ALT: 55, alk phos: 64. CTA chest had noted hepatic steatosis, Possible pericholecystic stranding. This may be artifactual. The findings are not strongly suggestive of acute cholecystitis given lack of gallbladder distention. However, patient denied any abd pain and no RUQ tenderness Minimally elevated ALT/AST on admission likely due to alcohol use. Normal today Drinks 8 beers daily. Last ETOH drink was night prior to admission Continue alcohol withdrawal protocol Counseled extensively regarding alcohol cessation Continue thiamine, folic acid Monitor electrolytes 05/02 no overt signs of alcohol withdrawal continue Gabapentin protocol 05/03 (+) anxiety added PRN ativan for anxiety continue to monitor closely (8) Tobacco use: Plan: Smokes 1ppd Nicotine patch Counseled regarding smoking cesssation DVT Prophylaxis On IV heparin gtt as above Full Code Patient will need new PCP set up on discharge as he does not have one plan of care discussed with patient and his in detail and at length all questions answered they are understanding, agreeable, comfortable with the plan of care Admission and Anticipated Discharge Date Admission Date: April 30, 2024 Subjective ff up for a fib, flu, etc seen resting in bed, comfortable on room air patient's Sandra at bedside visiting states he feels ok overall breathing is better, less cough no chest pain, dyspnea, palpitations, dizziness reports anxiety but no tremors, confusion, hallucinations, etc no other symptoms Review of Systems Review of Systems: all noted and negative except for above Physical Exam Physical Exam: General- oriented x 3, not in distress, speaks in sentences with no effort or accessory muscle use Eyes- anicteric Neck- no JVD Lungs- clear breath sounds bilaterally, no rales/wheezes Heart- normal rate, regular rhythm; no murmurs Abdomen- normal bowel sounds, nondistended, soft, nontender Extremities- no pretibial edema, no calf tenderness no tremors Neuro- alert, oriented x 3; no gross focal neurologic deficits Skin- warm & dry Results & Data Results & Data Vital Signs (Past 12 Hours) Vital Signs Temp Pulse Pulse Resp BP Pulse Ox O2 Del Method 05/03/24 15:23 36.9 C 87 18 124/79 95 Room Air 05/03/24 13:55 88 05/03/24 11:30 36.8 C 87 18 123/89 95 Room Air 05/03/24 10:46 36.8 C 84 17 121/93 96 Room Air 05/03/24 08:52 128/90 05/03/24 08:49 90 05/03/24 08:40 86 20 128/88 97 Room Air 05/03/24 08:10 Room Air 05/03/24 08:10 83 19 122/92 95 Room Air 05/03/24 08:02 86 16 122/91 97 Room Air 05/03/24 07:48 87 16 102/82 97 Oxymask 05/03/24 07:43 83 18 110/73 94 Oxymask 05/03/24 07:33 93 H 05/03/24 07:16 36.8 C 105 H 16 134/95 100 Room Air O2 Flow Rate 05/03/24 15:23 05/03/24 13:55 05/03/24 11:30 05/03/24 10:46 05/03/24 08:52 05/03/24 08:49 05/03/24 08:40 05/03/24 08:10 05/03/24 08:10 05/03/24 08:02 0 05/03/24 07:48 4 05/03/24 07:43 8 05/03/24 07:33 05/03/24 07:16 all noted and reviewed including below
[2024-05-03] MEDS: IPRATROPIUM BROMIDE NEB SOLN 0.02% 0.5MG/2.5ML VIAL NEB PRN (19:50)
[2024-05-03] MEDS: LEVALBUTEROL 1.25 MG/3 ML NEB NEB PRN (19:50)
[2024-05-03 20:30] LABS: ANTI-Xa, UFH(UnfractionatedHep 0.22 IU/ml (0.3-0.7)
[2024-05-03] MEDS: LORazepam 0.5 MG TAB PO PRN (20:38)
[2024-05-03] MEDS: VALSARTAN/SACUBITRIL 26/24MG TAB PO SCH (21:45)
[2024-05-04 03:15] LABS: BUN Creatinine Ratio 21.8 (10-20); Calcium 8.3 mg/dl (8.6-10.3); Creatinine Clr Calc Pharmacy 123.7 ml/min; Potassium 4.3 mmol/L (3.5-5.1)
[2024-05-04 03:31] LABS: ANTI-Xa, UFH(UnfractionatedHep 0.21 IU/ml (0.3-0.7)
[2024-05-04] MEDS: GABAPENTIN 600 MG TAB PO SCH (05:18)
[2024-05-04] MEDS ORDERED: methylPREDNISolone 125 MG/2 ML VIAL IV STA (09:26)
--- NOTE | 2024-05-04 09:28 | Cardiology Progress Note ---
Date of Service May 04, 2024 Assessment & Plan (1) Atrial fibrillation with RVR: (2) Influenza A (H1N1): (3) Elevated LFTs: (4) Cardiomyopathy: Plan 53-year-old male presenting with worsening dyspnea and hypoxic respiratory failure. Found to be in atrial fibrillation with rapid ventricular response, test positive for influenza A. Symptoms preceded by several days increasing cough myalgias malaise. Last evening marked dyspnea with cough. Currently improved with oxygen supplementation. Cardiac issues are as follows 1. Atrial fibrillation with rapid ventricular response: Uncertain duration as patient is unaware of tachypalpitations despite elevated heart rate in ER. Anticoagulation with IV heparin ordered. Patient begun on IV diltiazem however preliminary review echo reflects mildly depressed LV systolic function. Will discontinue IV diltiazem continue oral metoprolol tartrate. Formal echo review pending Will ultimately require sleep apnea evaluation 2. Influenza A, likely precipitant of cardiac arrhythmias though patient hypertensive on presentation. Underlying history of significant alcohol use. Treatment per primary service as well as nicotine and alcohol withdrawal management 05/01/2024 53-year-old admitted with acute hypoxic respiratory failure with influenza A. Newly observed atrial fibrillation found with rapid ventricular response 1. Atrial fibrillation with rapid ventricular response. Metoprolol to tartrate changed to metoprolol succinate 100 mg twice per day. Continue anticoagulation with IV heparin 2. Cardiomyopathy uncertain etiology. Possibilities include atrial fibrillation for longer duration, alcohol induced, ischemic. 3. Hypertension with agitation now improving Recommendations: As above continue metoprolol succinate. May titrate higher if necessary we will keep n.p.o. after midnight tonight. Reassess in a.m. for consideration of KALEY guided cardioversion or cardiac catheterization as part of sequential evaluation of patient's current complaints 05/02/2024 Patient clinically improving though still with respiratory issues large amounts of productive sputum, oxygen demands. Remains in atrial fibrillation with intermittently elevated ventricular response rates Plan: Single dose IV furosemide today. Continue current dose of metoprolol succinate Plan KALEY synchronized electrocardioversion for a.m., n.p.o. after midnight tonight. May eat today 05/03/2024 1. Atrial fibrillation, paroxysmal: Successful conversion to sinus today. Continue current metoprolol succinate. Will require anticoagulation, discharge on Eliquis. Needs formal sleep study and sleep apnea evaluation 2. Diffuse cardiomyopathy with reduced ejection fraction. Will initiate guideline directed therapies with Entresto beginning today continue metoprolol succinate. Consider eplerenone/spironolactone. Discussed options of management occluding medical therapy and diagnostic imaging. Will need ischemic workup post discharge. Discussed cardiac catheterization this admission but wishes medical treatment first. Continue IV heparin until discharge Hopefully some LV recovery after maintaining sinus rhythm. Will need mandated alcohol cessation 05/04/2024 Clinically stable this morning tolerated initial doses of Entresto with improved blood pressure and heart rate. Remains in sinus rhythm. Diagnostic coronary angiography planned for later today as part of evaluation of diffuse cardiomyopathy. Procedure and risks explained in detail to the patient with further recommendations pending Admission and Anticipated Discharge Date Admission Date: April 30, 2024 Subjective Patient seen and examined, chart, medications, telemetry reviewed. Did not sleep well last night but otherwise no acute complaints. No chest pain or shortness of breath no dizziness or lightheadedness. Remains in sinus rhythm. Review of Systems Review of Systems: All systems reviewed & are unremarkable except as noted in Subjective Physical Exam Constitutional: + obese; no acute distress Eyes: PERRL, conjunctivae normal, anicteric sclerae ENMT: external ear and nose normal, oropharynx normal Neck: trachea midline, no thyromegaly + thick neck Respiratory: normal respiratory effort, lungs clear to auscultation Cardiovascular: Rate/Rhythm: regular rate and regular rhythm Heart Sounds: normal S1 and normal S2; no murmur Vessels: femoral pulses present and radial pulses present Gastrointestinal (Abdomen): normal bowel sounds, soft, nontender, no hepatosplenomegaly Musculoskeletal: no cyanosis or clubbing, extremities motor strength 5/5 Skin: no rashes, warm and dry Neurologic: PERRL, EOMI, accommodation nl, no face palsy, no dysarthria Results & Data Vital Signs (Past 12 Hours) Vital Signs Temp Pulse Pulse Resp BP Pulse Ox O2 Del Method 05/04/24 07:37 36.8 C 77 20 108/67 96 Room Air 05/04/24 03:02 83 18 93 Room Air 05/04/24 02:45 36.6 C 83 18 112/77 93 Room Air 05/04/24 00:15 87 05/03/24 22:38 36.8 C 91 H 18 121/74 94 Room Air 05/03/24 21:59 Room Air Laboratory Results Laboratory Results - last 24 hr 04/30/24 05/03/24 05/03/24 11:00 12:12 19:41 Heparin Anti-Xa, Unfract 0.21 L 0.22 L Sodium Potassium Chloride Carbon Dioxide Anion Gap BUN Creatinine Est Cr Clr Drug Dosing eGFR BUN/Creatinine Ratio Glucose Calcium U Codeine Confrm GC/MS NEGATIVE Ur Morphine (GC/MS) NEGATIVE Ur Hydrocodone (GC/MS) 924 H Ur Norhydrocodone 463 H Ur Noroxycodone NEGATIVE Urine Oxycodone (GC/MS) NEGATIVE U Oxymorphone GC/MS NEGATIVE Ur Hydromorphone (GC/MS) 666 H Drug Screen Comment SEE NOTE 05/04/24 02:26 Heparin Anti-Xa, Unfract 0.21 L Sodium 134 L Potassium 4.3 Chloride 102 Carbon Dioxide 26 Anion Gap 6 BUN 19 Creatinine 0.87 Est Cr Clr Drug Dosing 123.7 eGFR 103.82 BUN/Creatinine Ratio 21.8 H Glucose 116 H Calcium 8.3 L U Codeine Confrm GC/MS Ur Morphine (GC/MS) Ur Hydrocodone (GC/MS) Ur Norhydrocodone Ur Noroxycodone Urine Oxycodone (GC/MS) U Oxymorphone GC/MS Ur Hydromorphone (GC/MS) Drug Screen Comment
[2024-05-04] MEDS: IPRATROPIUM BROMIDE NEB SOLN 0.02% 0.5MG/2.5ML VIAL NEB STA (09:40)
[2024-05-04] MEDS: LEVALBUTEROL 1.25 MG/3 ML NEB NEB STA (09:40)
--- NOTE | 2024-05-04 10:18 | XRay Report ---
XR chest 1V portable HISTORY: 53 years-old Male wheezing, flu, r/o pneumonia acute shortness of breath with wheezing COMPARISON: Chest radiograph 04/30/2024 TECHNIQUE: AP view of the chest FINDINGS: Cardiac silhouette is upper limits of normal in size. Mild interstitial coarsening with hazy ill-defi ara medial right basilar prominent airspace opacities. No pneumothorax or large pleural effusion. The bones appear grossly intact. IMPRESSION: Mild asymmetric right basilar opacities are suspicious for pneumonia. ACT 112: Negative or not required by law. The above report was generated using voice recognition software. It may contain grammatical, syntax o r spelling errors. Electronically signed by: Franki Blood M.D. 05/04/2024 10:16 AM
[2024-05-04] MEDS: methylPREDNISolone 40 MG in SYRINGE 0 ML IV STA (10:31)
[2024-05-04 10:44] LABS: ANTI-Xa, UFH(UnfractionatedHep 0.27 IU/ml (0.3-0.7)
--- NOTE | 2024-05-04 10:50 | Pre Anesthesia Assessment ---
Date of Service May 04, 2024 Pre Sedation Assessment Vital Signs Temp Pulse Pulse Resp BP Pulse Ox O2 Del Method 05/04/24 09:37 86 16 95 Room Air 05/04/24 07:37 36.8 C 77 20 108/67 96 Room Air 05/04/24 03:02 83 18 93 Room Air 05/04/24 02:45 36.6 C 83 18 112/77 93 Room Air 05/04/24 00:15 87 05/03/24 22:38 36.8 C 91 H 18 121/74 94 Room Air 05/03/24 21:59 Room Air 05/03/24 19:51 88 19 95 Room Air 05/03/24 19:19 36.7 C 90 22 133/99 96 Room Air 05/03/24 15:23 36.9 C 87 18 124/79 95 Room Air 05/03/24 13:55 88 05/03/24 11:30 36.8 C 87 18 123/89 95 Room Air Cardiovascular RRR, no murmur, no edema + femoral pulses present and + radial pulses present; no JVD Respiratory + diminished lung sounds Pre-Sedation Airway Assessment Smoking Status: Current every day smoker Thyromental Distance: > or= 3.5 Finger Breadths Mallampati Class: II NPO Status Date of Last Intake of Fluids: 05/04/24 Last Oral Intake of Fluids Comment: Meds with sips Date of Last Intake of Solid Food: 05/03/24 Time of Last Intake of Solid Foods: 21:00 Procedure Planning Contraindications for Sedation: none Current Medications Reviewed: Yes Notes The planned sedation has been discussed with the patient. Informed Consent was obtained. I have identified the patient, determined the appropriateness of sedation and have assessed the patient immediately prior to the procedure. All medicine(s) and interventions are by my order.
--- NOTE | 2024-05-04 12:59 | Hospitalist Progress Note ---
Date of Service May 04, 2024 Assessment & Plan (1) Influenza A: Plan: (1) Acute hypoxemic respiratory failure: (2) Influenza A (H1N1): Plan: per Dr. Stephenson's notes with addendum: 53-year-old male with PMH ETOH abuse, tobacco use, chronic back pain presented to ER with c/o SOB, cough, myalgias In ER afebrile, P: 126, R: 44, BP 160/86, 88% on room air up to 95% on 2 L O2 via nasal cannula +Influenza A on biofire respiratory panel. No leukocytosis. Procalcitonin: 0.07 CTA chest noted findings suggestive of bronchiolitis. In ER given 1L NSS, magnesium sulfate 1 g IV, hour-long albuterol neb Had fever overnight Continue tamiflu Continue oxygen supplementation and wean as tolerated Continue solumedrol today. Change to po tomorrow 05/02 still on 3 L clear breath sounds bilaterally continue tamiflu, nebs change solumedrol to prednisone 20mg po daily wean off O2 05/03 significantly improved now on room air continue Tamiflu, Prednisone 05/04 (+) recurrence of wheezing CXR: IMPRESSION: Mild asymmetric right basilar opacities are suspicious for pneumonia. start Levofloxacin 750 mg p.o. daily Solumedrol 40mg IV one dose now, then Prednisone 40mg BID resume Nebs QID continue Tamiflu (3) Atrial fibrillation with RVR: Plan: Cardiomyopathy New onset afib RVR. Likely from underlying illness with influenza In ER, he was given Diltiazem 10 mg IV bolus EKG: afib RVR Initial troponin: 17.5. BNP: 593 TTE noted mildly reduced EF of 40-45%, borderline conc LVH, mild to mod global hypokinesis of left ventricle, mod dilated LA, mild MR Diltiazem drip was discontinued with TTE result on day of admission Cardiology eval noted Cardiology increased metoprolol succinate to 100mg BID this AM Continue hep gtt for now. 05/02 remains on SR, HR 90-100s for possible CV vs cardiac cath today continue Metoprolol PO and Heparin drip 05/03 s/p Cardioversion continue Metoprolol, Heparin drip Entresto started upon discussion with patient and his , he is now agreeable for cardiac cath Dr. Rollins notified NPO post midnight 05/04 For cardiac cath today (4) Abnormal CT of the chest: Plan: 1. No pulmonary emboli identified although segmental and subsegmental pulmonary arteries suboptimally assessed due to respiratory motion. 2. Small cluster of tree-in-bud nodules within the right lower lobe suggestive of an infectious etiology such as bronchiolitis. A chest CT in 3 months to ensure resolution is recommended. 3. Mildly enlarged mediastinal and bilateral hilar lymph nodes. These are probably reactive but should be assessed on follow-up CT to ensure resolution. 4. Possible pericholecystic stranding. This may be artifactual. The findings are not strongly suggestive of acute cholecystitis given lack of gallbladder distention. However, if right upper quadrant pain, ultrasound is recommended. 5. Hepatic steatosis. will need outpatient repeat CT chest and follow up (5) Hypomagnesemia: Plan: Magnesium: 1.5 Got IV repletion Continue to monitor and replete as appropriate (6) Elevated LFTs: (7) H/O ETOH abuse: Plan: On admission, T. bili: 0.9, AST: 47, ALT: 55, alk phos: 64. CTA chest had noted hepatic steatosis, Possible pericholecystic stranding. This may be artifactual. The findings are not strongly suggestive of acute cho lecystitis given lack of gallbladder distention. However, patient denied any abd pain and no RUQ tenderness Minimally elevated ALT/AST on admission likely due to alcohol use. Normal today Drinks 8 beers daily. Last ETOH drink was night prior to admission Continue alcohol withdrawal protocol Counseled extensively regarding alcohol cessation Continue thiamine, folic acid Monitor electrolytes 05/02 no overt signs of alcohol withdrawal continue Gabapentin protocol 05/03 (+) anxiety added PRN ativan for anxiety continue to monitor closely (8) Tobacco use: Plan: Smokes 1ppd Nicotine patch Counseled regarding smoking cesssation DVT Prophylaxis On IV heparin gtt as above Full Code Patient will need new PCP set up on discharge as he does not have one plan of care discussed with patient and his in detail and at length all questions answered they are understanding, agreeable, comfortable with the plan of care Admission and Anticipated Discharge Date Admission Date: April 30, 2024 Subjective ff up for a fib, cardiomyopathy, flu a, etc seen resting in bed, comfortable having some dyspnea and wheeze this morning having intermittent dry cough anxiety relieved by ativan no chest pain, palpitations, dizziness no other symptoms Review of Systems Review of Systems: all noted and negative except for above Physical Exam Physical Exam: General- oriented x 3, not in distress, speaks in sentences with no effort or accessory muscle use Eyes- anicteric Neck- no JVD Lungs- (+) faint wheeze bilaterally mild rhonchi good air entry bilaterally Heart- normal rate, regular rhythm; no murmurs Abdomen- normal bowel sounds, nondistended, soft, no tenderness Extremities- no pretibial edema, no calf tenderness Neuro- alert, oriented x 3; no gross focal neurologic deficits Skin- warm & dry Results & Data Results & Data Vital Signs (Past 12 Hours) Vital Signs Temp Pulse Pulse Resp BP Pulse Ox O2 Del Method 05/04/24 11:00 36.7 C 87 20 104/74 98 Room Air 05/04/24 10:50 79 05/04/24 09:37 86 16 95 Room Air 05/04/24 07:37 36.8 C 77 20 108/67 96 Room Air 05/04/24 03:02 83 18 93 Room Air 05/04/24 02:45 36.6 C 83 18 112/77 93 Room Air all noted and reviewed including below
[2024-05-04] MEDS: IPRATROPIUM BROMIDE NEB SOLN 0.02% 0.5MG/2.5ML VIAL NEB SCH (13:13)
[2024-05-04] MEDS: LEVALBUTEROL 1.25 MG/3 ML NEB NEB SCH (13:13)
[2024-05-04] MEDS: NITROGLYCERIN/D5W 100MCG/ML 20ML SYR ONE (13:36)
[2024-05-04] MEDS: niCARdipine 2,000 MCG/20 ML SYR ONE (13:36)
[2024-05-04] MEDS: OPTIRAY 350 ONE (14:03)
[2024-05-04] MEDS: fentaNYL citrate PF 100 MCG/2 ML VIAL ONE (14:05)
[2024-05-04] MEDS: MIDAZOLAM HCL 1 MG/ML 2ML VIAL ONE (14:05)
[2024-05-04] MEDS: HEPARIN (PORCINE) 1000 UNIT/ML 10 ML (CATH LAB USE ONLY) ONE (14:05)
--- NOTE | 2024-05-04 14:10 | Post Anesthesia Assessment ---
Date of Service May 04, 2024 Post Sedation Assessment Vital Signs Temp Pulse Pulse Resp BP BP Pulse Ox 05/04/24 13:19 78 18 126/82 95 05/04/24 11:00 36.7 C 87 20 104/74 98 05/04/24 10:50 79 05/04/24 09:37 86 16 95 05/04/24 07:37 36.8 C 77 20 108/67 96 05/04/24 03:02 83 18 93 05/04/24 02:45 36.6 C 83 18 112/77 93 05/04/24 00:15 87 05/03/24 22:38 36.8 C 91 H 18 121/74 94 05/03/24 21:59 05/03/24 19:51 88 19 95 05/03/24 19:19 36.7 C 90 22 133/99 96 05/03/24 15:23 36.9 C 87 18 124/79 95 O2 Del Method 05/04/24 13:19 Room Air 05/04/24 11:00 Room Air 05/04/24 10:50 05/04/24 09:37 Room Air 05/04/24 07:37 Room Air 05/04/24 03:02 Room Air 05/04/24 02:45 Room Air 05/04/24 00:15 05/03/24 22:38 Room Air 05/03/24 21:59 Room Air 05/03/24 19:51 Room Air 05/03/24 19:19 Room Air 05/03/24 15:23 Room Air Recovery Score Activity: Moves 4 extremities Respiration: Deep Breath/Cough Circulation: +/-20% PreAnes Value Consciousness: Fully Awake Oxygen Saturation: > 92% On Room Air Post Anesthesia Score: 10 Discharge Sedation Level of Care: Phase I Post Sedation Plan On clinical assessment, the patient appears to have tolerated the sedation without complications. Patient is recovering as anticipated. Patient will continue to be monitored by nursing and may be discharged when sedation discharge criteria are met per below protocol. Upon Completions of procedure up to 15 minutes continue every 5 minute vital signs and the P.A.R. score; then discharge to a Phase I or Fast Track to Phase II per the following guidelines: * Discharge Patient to appropriate Phase II area if PAR is 8 or greater or return to pre- procedure baseline. The post - procedure orders will be as directed. * If PAR score is less than 8 or not return to pre-procedure baseline then patient will follow Phase I monitoring till PAR is reached for Phase II. The Phase I may be done in procedure room or may call to secure a Phase I area. * If naloxone or flumazenil are used for reversal, hold in Phase I for continued monitoring from when last reversal dose was given for a minimum of 60 minutes or longer pending the nurse and/or physician discretion of patient condition before discharge to Phase II. Please call the Sedation Physician to re-evaluate and complete post-note for discharge to Phase II area. Do NOT discharge from procedure sedation or Phase 1 until post- sedation evaluation note is complete by procedure /sedation MD Sedation Discharge Instructions to be given to the patient at discharge to home.
--- NOTE | 2024-05-04 14:16 | Cardiac Catheterization ---
Cardiac Cath Procedure Brief Procedure Date May 04, 2024 Pre-Procedure Diagnosis Pre-Procedure Diagnosis: Cardiomyopathy and Arrhythmia AUC Score AUC Score: 8 Post-Procedure Diagnosis Post-Procedure Diagnosis: Moderate CAD (Single-vessel left circumflex) Procedure(s) Performed Procedure(s) Performed: Coronary Angiography and Left Heart Cath Stress Test Technician Homero Rollins MD Cap Maker(s) Janeen Menard Estimated Blood Loss Estimated Blood Loss: <15cc Medication(s) Medication(s): Heparin (5000 units IV), Lidocaine 1% (Local infiltration access site), Nicardipine (250 mcg intra-arterial after arterial sheath insertion) and Versed (1 mg IV x 2) Preliminary Findings Impression:Large-caliber right dominant coronary anatomy. Moderate single-vessel coronary artery disease with 50 to 60% left circumflex stenosis with ulceration. No other high-grade obstructive disease Mildly elevated left end-diastolic pressure Recommendations Recommendations: Medical Therapy and/or Counseling Specimens Specimens: None Anesthesia Start time: 1348, stop time: 1404 Procedural Complication(s) None Disposition PCU
--- NOTE | 2024-05-04 14:24 | Cardiac Catheterization ---
Cardiac Cath Procedure Full Procedure Date May 04, 2024 Pre-Procedure Diagnosis Pre-Procedure Diagnosis: Cardiomyopathy and Arrhythmia AUC Score AUC Score: 8 Post-Procedure Diagnosis Post-Procedure Diagnosis: Moderate CAD (Single-vessel left circumflex) Procedure(s) Performed Procedure(s) Performed: Coronary Angiography and Left Heart Cath Software Verification Engineer Homero Rollins MD Inspector [employer](s) Janeen Menard Estimated Blood Loss Estimated Blood Loss: <15cc Medication(s) Medication(s): Heparin (5000 units IV), Lidocaine 1% (Local infiltration access site), Nicardipine (250 mcg intra-arterial after arterial sheath insertion) and Versed (1 mg IV x 2) Summary of Findings Impression: 1. Nonischemic cardiomyopathy 2.Large-caliber right dominant coronary anatomy. 3.Moderate single-vessel coronary artery disease with 50 to 60% left circumflex stenosis with ulceration. No other high-grade obstructive disease 4.Mildly elevated left end-diastolic pressure Procedure: Left heart catheterization, coronary angiography via right radial access without difficulty Catheters: 6 [place] long glide sheath, 5 [place], 5 [place] straight pigtail Coronary angiography: Right dominant anatomy, large caliber vessels Left main: Left main is short and free of disease or calcification Left anterior descending: Type III in distribution. It gives rise to a large septal branch and a large diagonal branch in its proximal third and courses to terminate beyond the apex. There are minimal luminal regularities in its apical portion. There is no obstructive disease Left circumflex: Large-caliber vessel. It gives rise to a large atrial branch and essentially a single large multi branching obtuse marginal. Within the left circumflex obtuse marginal there is a long area of 50 to 60% disease with small area of ulceration. No obstruction to flow. Right coronary artery: Moderately large dominant vessel. It gives rise to a large sinoatrial branch at its origin. The right coronary artery gives rise to an accessory PDA and a true PDA as well as a long bifurcating terminal posterior ventricular branch. There is no disease in the right coronary artery LV angiography: Not performed Hemodynamics: L eft ventricular end-diastolic pressure 22 Hemodynamics Rest Ao:: 122/81/94 Final Ao: 122/80/98 LV: 110/12/22 Recommendations Recommendations: Medical Therapy and/or Counseling Specimens Specimens: None Radiation Exposure (mGy) 1088 Contrast (mls) 65 Anesthesia Start time: 1348, stop time: 1404 Procedural Complication(s) None Disposition PCU I attest to the content of the Intraoperative Record and any orders documented therein. Any exceptions are noted below. ACC Data: Ammonia Still Operator Cardiac Status Clinical evaluation leading to the procedure 53-year-old male presented with atrial fibrillation with rapid ventricular response, acute influenza A. Echocardiogram demonstrated moderate to severe diffuse left ventricular dysfunction CAD Presenation: No Sxs, No angina Anginal Classification: No Symptoms Heart Failure: Yes Cardiogenic Shock within 24 Hours: No Cardiac Arrest within 24 Hours: No Imaging Studies Past 6 Months: Yes Stress Studies Past 6 Months: No Standard Exercise Test: No Stress Echocardiogram: No Stress Testing w/SPECT MPI: No Cardiac CTA: No Coronary Anatomy Dominant: Right Left Main (% Stenosis): Normal LAD (% Stenosis): Distal (Mild luminal regularities) D1 (% Stenosis): Normal D2 (% Stenosis): Normal Circumflex (% Stenosis): Normal OM1 (% Stenosis): Proximal (50 to 60% eccentric lesion with ulceration) RCA (% Stenosis): Normal R PDA (% Stenosis): Normal R PL1 (% Stenosis): Normal R PL2 (% Stenosis): Normal Left Ventricular Angiography EF (%): N/A Diagnostic Physicians Name: Homero Rollins MD Closure Device Closure Device: Radial Band Recommendations: Medical Therapy and/or Counseling
--- NOTE | 2024-05-04 15:33 | Communication Note ---
Date of Service: May 04, 2024 Patient referred and underwent coronary angiography, left heart catheterization on 05/04/2024 Results and summary 1. Nonischemic cardiomyopathy 2. Moderate nonobstructive coronary disease with 50 to 60% ulcerated lesion left circumflex with minimal luminal regularities other vasculature 3. Elevated left end-diastolic pressure Recommendations: Standard post cath radial access instructions Discontinue IV heparin. Begin Eliquis 5 mg p.o. daily Begin aspirin 81 mg/day Continue Entresto CHF instruction Alcohol cessation mandated Follow-up cardiology 3 to 4 weeks
[2024-05-04] MEDS: levoFLOXacin 750 MG TAB PO SCH (15:37)
[2024-05-04] MEDS: STOP HEPARIN ORDER ONE (16:29)
[2024-05-04] MEDS: APIXABAN 5 MG TABLET PO SCH (16:29)
[2024-05-04 17:29] LABS: ANTI-Xa, UFH(UnfractionatedHep < 0.10 IU/ml (0.3-0.7)
[2024-05-04] MEDS: predniSONE 20 MG TAB PO SCH (19:59)
[2024-05-05 06:55] VITALS: RESP 18; O2SAT 96
[2024-05-05 07:26] VITALS: PULSE 72; TEMP 98.2
[2024-05-05] MEDS: ASPIRIN 81 MG ECTAB PO SCH (09:55)
[2024-05-05 11:17] VITALS: BP 104/74
--- NOTE | 2024-05-05 14:39 | Discharge Summary ---
Discharge Summary Date of Service May 05, 2024 Principal Dx & Hospital Course #1 = Principal Diagnosis (1) Influenza A: (1) Acute hypoxemic respiratory failure: (2) Influenza A (H1N1): Possible Right Lower Lobe Pneumonia Plan: per Dr. Stephenson's notes with addendum: 53-year-old male with PMH ETOH abuse, tobacco use, chronic back pain presented to ER with c/o SOB, cough, myalgias In ER afebrile, P: 126, R: 44, BP 160/86, 88% on room air up to 95% on 2 L O2 via nasal cannula +Influenza A on biofire respiratory panel. No leukocytosis. Procalcitonin: 0.07 CTA chest noted findings suggestive of bronchiolitis. In ER given 1L NSS, magnesium sulfate 1 g IV, hour-long albuterol neb CXR: IMPRESSION: Mild asymmetric right basilar opacities are suspicious for pneumonia. received IV solumedrol, Levaquin, Tamiflu, nebs weaned off O2 accordingly d/c plan: Levaquin Tamiflu Prednisone Taper PRN Xopenex (3) Atrial fibrillation with RVR: Ischemic Cardiomyopathy Coronary Artery Disease New onset afib RVR. Likely from underlying illness with influenza In ER, he was given Diltiazem 10 mg IV bolus EKG: afib RVR Initial troponin: 17.5. BNP: 593 TTE noted mildly reduced EF of 40-45%, borderline conc LVH, mild to mod global hypokinesis of left ventricle, mod dilated LA, mild MR 05/03 s/p Cardioversion continued on Metoprolol, Heparin drip Entresto started 05/04 s/p Cardiac Cath: 1. Nonischemic cardiomyopathy 2.Large-caliber right dominant coronary anatomy. 3.Moderate single-vessel coronary artery disease with 50 to 60% left circumflex stenosis with ulceration. No other high-grade obstructive disease 4.Mildly elevated left end-diastolic pressure d/c recommendations per Cardiology: Metoprolol XL 100mg BID Entresto 26/24mg BID Eliquis 5mg BID ASA 81mg daily (4) Abnormal CT of the chest: Plan: 1. No pulmonary emboli identified although segmental and subsegmental pulmonary arteries suboptimally assessed due to respiratory motion. 2. Small cluster of tree-in-bud nodules within the right lower lobe suggestive of an infectious etiology such as bronchiolitis. A chest CT in 3 months to ensure resolution is recommended. 3. Mildly enlarged mediastinal and bilateral hilar lymph nodes. These are probably reactive but should be assessed on follow-up CT to ensure resolution. 4. Possible pericholecystic stranding. This may be artifactual. The findings are not strongly suggestive of acute cholecystitis given lack of gallbladder distention. However, if right upper quadrant pain, ultrasound is recommended. 5. Hepatic steatosis. will need outpatient repeat CT chest for follow up ff up hepatic steatosis (5) Hypomagnesemia: Plan: replaced (6) Elevated LFTs: (7) H/O ETOH abuse: Plan: On admission, T. bili: 0.9, AST: 47, ALT: 55, alk phos: 64. CTA chest had noted hepatic steatosis, Possible pericholecystic stranding. This may be artifactual. The findings are not strongly suggestive of acute cholecystitis given lack of gallbladder distention. However, patient denied any abd pain and no RUQ tenderness Minimally elevated ALT/AST on admission likely due to alcohol use. Normal today Drinks 8 beers daily. Last ETOH drink was night prior to admission given alcohol withdrawal protocol including Gabapentin taper Counseled extensively regarding alcohol cessation Continue thiamine, folic acid (8) Tobacco use: Plan: Smokes 1ppd Nicotine patch Counseled regarding smoking cesssation d/c home ff up with PCP in 1 week ff up with Leather Skinner in 2-3 weeks Notes For Next Care Provider Repeat CT chest in 3 months to follow up lung nodules and lymphadenopathy (please see full CT chest report) Medication Changes From Visit Metoprolol, Entresto-for atrial fibrillation, cardiomyopathy Eliquis-blood thinner to prevent stroke secondary to atrial fibrillation Aspirin-for prevention of heart attack secondary to coronary artery disease Levaquin-antibiotic for pneumonia Prednisone taper-steroids for possible underlying COPD exacerbation, to be taken as follows: 40 mg daily x 1 day, then 30 mg daily x 2 days, then 20 mg daily x 2 days, then 10 mg daily x 2 days, then stop Xopenex inhaler-as needed for shortness of breath Nicotine patch-for smoking cessation, do not use if you decide to smoke again Admission HPI Per Admitting Provider Patient is a 53-year-old male with PMH ETOH abuse, tobacco use, chronic back pain presented to ER with c/o SOB x 1 day. Patient reports does not go to PCP and denies any known afib, TIA/CVA, CKD, CHF history, HTN, or COPD. Patient states yesterday started with diffuse myalgias, productive cough (unsure of coloration), congestion, and SOB. Unaware if any fever. [place] chilled. States today coughing a lot but attempted going to work today and at work had severe SOB, coughing episode with post tussive emesis and chest tightness and dizziness and felt like he was going to pass out. Denies syncope. Denies NAGY. Denies other vomiting or diarrhea. Denies noted palpitations. States diffuse body aches and diffuse abdominal aching with coughing but denies other abdominal pain. Reports some BLE edema after standing all day at work. Drinks 8 beers a day. Last ETOH last night. reports gets tremulous when doesn't drink. Denies history seizure, DT's. Drinks up to 24 ounces Mountain Dew on work days. Smokes 1ppd. Did not have influenza vaccine this season. Denies any known ill contacts. Denies melena, hematochezia, diarrhea, constipation, vision changes, hemoptysis, paresthesias, extremity weakness, rashes, urinary symptoms. Admission Exam Per Admitting Provider General: +ill appearing, no acute respiratory distress at rest on 3L via NC, obese Head: normocephalic, atraumatic Eyes: conjunctiva non-injected, anicteric ENT: normal inspection external ears, nose, mucous membranes moist Neck: supple, trachea midline Lungs: no respiratory distress on 3L O2 via NC with sat 96%, +diminished breath sounds and wheezing throughout CV: irregularly irregular, rate 140, 1+ pretibial edema Abd: protuberant, normal BS, soft, non-tender to palpation Ext: no cyanosis, no calf tenderness Neuro: A&O x 3, no focal deficits noted, normal affect Skin: warm, dry Discharge Exam General- oriented x 3, not in distress, speaks in sentences with no effort or accessory muscle use Eyes- anicteric Neck- no JVD Lungs- very faint, intermittent rhonchi BL Heart- normal rate, regular rhythm; no murmurs Abdomen- normal bowel sounds, nondistended, soft, nontender Extremities- no pretibial edema, no calf tenderness Neuro- alert, oriented x 3; no gross focal neurologic deficits Skin- warm & dry Updated Medication List Medication Instructions Recorded Confirmed Type apixaban 5 mg tablet (Eliquis) 5 mg PO BID@0500,1700 30 days #60 05/05/24 Rx tabs aspirin 81 mg tablet,delayed 81 mg PO QAM 30 days #30 tabs 05/05/24 Rx release folic acid 1 mg tablet 1 mg PO QAM 7 days #7 tabs 05/05/24 Rx guaifenesin 600 mg tablet, 600 mg PO Q12 7 days #14 tabs 05/05/24 Rx extended release 12 hr (Mucinex) levalbuterol tartrate 45 1 inh inhalation Q4H PRN shortness 05/05/24 Rx mcg/actuation aerosol inhaler of breath or wheezing #15 grams (Xopenex HFA) levofloxacin 750 mg tablet 750 mg PO DAILY@1100 3 days #3 tabs 05/05/24 Rx metoprolol succinate 50 mg 100 mg (2 x 50 mg) PO BID 30 days 05/05/24 Rx tablet,extended release 24 hr #120 tabs multivitamin with folic acid 400 1 tab PO QAM 30 days #30 tabs 05/05/24 Rx mcg tablet (Daily-Luciana (with folic acid)) nicotine 21 mg/24 hr daily 1 patch transdermal QAM 14 days 05/05/24 Rx transdermal patch (Nicoderm CQ) #14 ea prednisone 10 mg tablet 10 mg PO UD #16 tabs 05/05/24 Rx sacubitril 24 mg-valsartan 26 mg 1 tab PO BID 30 days #60 tabs 05/05/24 Rx tablet (Entresto) thiamine HCl (vitamin B1) 100 mg 100 mg PO QAM 7 days #7 tabs 05/05/24 Rx tablet Hospital Stay Data Consultations 04/30/24 12:15 ED Decision to Admit Stat 04/30/24 13:31 Consult Cardiology Routine 05/02/24 10:34 Consult Anesthesiology Routine Procedures Performed Operation Date: 05/04/24 12:30 Actual Procedures s Cineradiography w/Routine Exam - Homero Rollins MD p Cath, Left with Cors and Vent - Homero Rollins MD Diagnostic Imagining Performed 04/30/24 10:45 CT for pulmonary embolism PE [CT angio chest PE protocol] Stat CT ANGIOGRAPHY OF THE CHEST, PULMONARY EMBOLUS PROTOCOL CLINICAL HISTORY: Hypoxia. Evaluate for pulmonary embolus. COMPARISON STUDY: Chest radiograph performed earlier today. TECHNIQUE: Following IV administration of 120 mL of Optiray, helical axial images of the chest were obtained utilizing the pulmonary embolus protocol. Maximal intensity projections and sagittal and coronal reformats were viewed on an independent 3D workstation. IV contrast was administered without complication. Automated exposure control was utilized for the study. A dose lowering technique was utilized adhering to the principles of ALARA. CT DOSE: 1033.94 mGy.cm FINDINGS: No pulmonary emboli are identified although segmental and subsegmental pulmonary arteries are suboptimally assessed due to respiratory motion. The heart is mildly enlarged. There is no pericardial effusion. There is no pneumothorax or pleural effusion. A small focus of tree-in-bud nodules within the right lower lobe is present. Lungs are suboptimally assessed due to respiratory motion. There are mildly enlarged mediastinal and hilar lymph nodes. Index right paratracheal lymph node on image 213 of 265 measures 1.6 x 1.2 cm. There is bilateral gynecomastia. Hepatic steatosis is incidentally noted. There is glandular atrophy is visualized portions of the pancreas. There may be subtle pericholecystic stranding. IMPRESSION: 1. No pulmonary emboli identified although segmental and subsegmental pulmonary arteries suboptimally assessed due to respiratory motion. 2. Small cluster of tree-in-bud nodules within the right lower lobe suggestive of an infectious etiology such as bronchiolitis. A chest CT in 3 months to ensure resolution is recommended. 3. Mildly enlarged mediastinal and bilateral hilar lymph nodes. These are probably reactive but should be assessed on follow-up CT to ensure resolution. 4. Possible pericholecystic stranding. This may be artifactual. The findings are not strongly suggestive of acute cholecystitis given lack of gallbladder distention. However, if right upper quadrant pain, ultrasound is recommended. 5. Hepatic steatosis. ACT 112: Negative or not required by law. 05/04/24 06:36 CL Cath Imgs for PACS use only Routine Pending Results Patient Have Any Pending Studies at Discharge: No Discharge Instructions Given to Patient (Per Discharging Provider) PLEASE REFER TO YOUR NEW MEDICATION LIST AND FOLLOW INSTRUCTIONS CAREFULLY. YOUR NEW MEDICATIONS INCLUDE: Metoprolol, Entresto-for atrial fibrillation, cardiomyopathy Eliquis-blood thinner to prevent stroke secondary to atrial fibrillation Aspirin-for prevention of heart attack secondary to coronary artery disease Levaquin-antibiotic for pneumonia Prednisone taper-steroids for possible underlying COPD exacerbation, to be taken as follows: 40 mg daily x 1 day, then 30 mg daily x 2 days, then 20 mg daily x 2 days, then 10 mg daily x 2 days, then stop Xopenex inhaler-as needed for shortness of breath Nicotine patch-for smoking cessation, do not use if you decide to smoke again Please take a probiotic daily and eat yogurt daily for at least 1 month. Call your primary care physician immediately if you are having diarrhea. If you sustain any head injury, please return to the ER immediately for evaluation including a CAT scan of your head to check for bleeding. If you notice any signs of bleeding, call your primary care physician or return to the ER immediately. PLEASE CALL YOUR PRIMARY CARE PHYSICIAN OR RETURN TO THE ER IF WITH WORSENING OF SYMPTOMS, INCLUDING Shortness of breath, cough, fevers or chills, Chest pain, palpitations, dizziness, weakness, leg swelling, etc. FOLLOW UP WITH PRIMARY CARE PHYSICIAN OUTLINED ABOVE. Follow-up with radial arm saw operator Dr. Homero Rollins in 2 to 3 days. His office will be contacting you for the appointment schedule. Please contact information is also outlined above. Total Time Total Time Spent Total Time Spent (In Minutes): 50 minutes
== END 2024-05-05 12:03 | disposition home or self-care (01) | DRG 865 ==
LOC: ED 09:01 → 2E 13:04 → SUATTDRO 13:04 → 2E 15:00